=== PATIENT | female | born 1945 | race Native Hawaiian/Other Pacific Islander ===

== ENCOUNTER 2018-01-21 01:20 | Observation (INO) | payer OTHER, SELFPAY ==
[2018-01-21] VITALS (15 sets, daily range): BP systolic 106–156; BP diastolic 56–79; PULSE 54–98; RESP 14–20; TEMP 36.3–37.1; O2SAT 95–99; BMI 24.3
--- NOTE | 2018-01-21 | DI.ECHO.S_ITS ---
[facility] +---------+ : : [address] : : : : [place], [place] : : : : [id number] : : : : Phone: [phone] Echocardiogram Report + + :Name: AMADOR PANDEY Study Date: 01/21/2018 Height: 63 in : :[facility] Exam Location: IS Weight: 145 lb : : Gender: Female BSA: 1.7 m2 : :: 1945 Age: 72 yrs BP: 117/76 mmHg: :Reason For Study: CHEST PAIN : : Performed By: Bogdan Benson : :Referring: MILLICENT NAVARRO : + + Interpretation Summary 1) Normal left ventricular thickness, size, wall motion, and systolic function (EF 60-65%0. 2) Normal right ventricular size and function. 3) No significant valvular abnormalities. 4) The ascending aorta is mild-moderately enlarged at 4.3cm. 5) No prior echo available for comparison. Procedure: A two-dimensional transthoracic echocardiogram with color flow and Doppler was performed. The study quality was technically adequate. There is no prior echocardiogram noted for this patient. The patient was in normal sinus rhythm during the exam. The patient had frequent PVCs during the exam. Left Ventricle: The left ventricle is normal in size. There is normal left ventricular wall thickness. The ejection fraction is estimated to be 60-65%. There are no focal wall motion abnormalities. Right Ventricle: The right ventricle is normal in size and function. Atria: Both atria are normal in size. The interatrial septum is intact with no evidence for an atrial septal defect. The thickening of interatrial septum suggests lipomatous hypertrophy. Mitral Valve: The mitral valve is normal in structure and function. There is trace mitral regurgitation. Aortic Valve: The aortic valve is trileaflet. The aortic valve opens well. There is no aortic valve stenosis. There is trace aortic regurgitation. Tricuspid Valve: The tricuspid valve is normal in structure and function. There is a trace or physiologic amount of tricuspid regurgitation. The right ventricular systolic pressure is estimated at 17 mmHg assuming a right atrial pressure of 3 mm Hg. Pulmonic Valve: The pulmonic valve is not well visualized. There is trace pulmonic regurgitation. Great Vessels: The aortic root is normal size. The ascending aorta is mild- moderately enlarged. The pulmonary artery is normal size. The IVC is of normal diameter and collapses greater than 50% with a sniff. This suggests a low right atrial pressure of 3 mm Hg. Pericardium/ Pleura There is no pericardial effusion. There is no pleural effusion. MMode/2D Measurements & Calculations LVIDd: 4.5 cm Ao root diam: 3.1 cm LVIDs: 3.1 cm Aortic Jxn: 2.7 cm FS: 31.7 % asc Aorta Diam: 4.3 cm EPSS: 0.58 cm IVSd: 0.84 cm LVPWd: 0.88 cm LV olmedo. diameter/BSA (cm/m^2): 2.7 LV sys. diameter/BSA (cm/m^2): 1.8 LA dimension: 3.1 cm RA long axis: 4.5 cm LA A2 area: 17.1 cm2 RA area: 12.5 cm2 LA A4 area: 15.6 cm2 RA vol: 29.4 ml LA length (vol): 4.8 cm RA : 17.4 ml/m2 LA vol: 47.2 ml IVC diam: 1.2 cm LA vol index: 28.0 ml/m2 Doppler Measurements & Calculations Ao V2 max: 165.0 cm/sec MV E max henrik: 64.9 cm/sec Ao V2 mean: 97.3 cm/sec MV A max henrik: 122.1 cm/sec Ao max P.9 mmHg MV E/A: 0.53 Ao mean P.6 mmHg Med Peak E' Henrik: 4.1 cm/sec Ao V2 VTI: 31.3 cm E/E' med: 15.7 Lat Peak E' Henrik: 9.8 cm/sec E/E' lat: 6.6 E/e' average: 11.2 MV dec time: 0.13 sec TR max henrik: 184.9 cm/sec Pulm A Revs Henrik: 40.0 cm/sec TR max P.7 mmHg PA V2 max: 108.8 cm/sec PA V2 mean: 71.2 cm/sec PA mean P.4 mmHg PA pr(Accel): 51.6 mmHg PA Accel Time: 0.05 sec Reading Physician:06:04 PM
--- NOTE | 2018-01-21 01:25 | DI.RAD.S_ITS ---
PROCEDURE: XR CHEST 1V INDICATIONS: Chest Pain TECHNIQUE: One view of the chest was acquired. COMPARISON: None. FINDINGS: Surgical changes and devices: None. Lungs and pleura: No pleural effusions or pneumothorax. Lungs are clear. Mediastinum: Mediastinal contours appear normal. Heart size is normal. Bones and chest wall: No suspicious bony lesions. Overlying soft tissues appear unremarkable. Calcific tendinitis is noted at the right humeral head. Moderate acromioclavicular bilaterally degenerative narrowing is present. IMPRESSION: No acute pulmonary process. Dictated by: Alexandria Ball M.D. on 01/21/2018 at 9:18 Approved by: Alexandria Ball M.D. on 01/21/2018 at 9:19
--- NOTE | 2018-01-21 01:35 | ED_ITS ---
HPI - Chest Pain General Chief Complaint: Chest Pain Stated Complaint: Chest tightness Time Seen by Provider: 01/21/18 01:25 Source: patient and EMS Mode of arrival: EMS Limitations: no limitations History of Present Illness HPI narrative: 72-year-old female presents by EMS for evaluation of left-sided chest pain that woke her from sleep about 30 min prior to her arrival. She called EMS to bring her in. She has had chest pain requiring admission in the past and stress tests but she is unclear when that happened but states that was at [facility] in [place]. She admits to mild ongoing discomfort and was given full-dose aspirin by EMS. She denies other symptoms such as dizziness, weakness or lightheadedness. She denies nausea, vomiting or diarrhea. She denies history of blood clots or cancer. She denies provocation or palliation but states the pain is on her left side and goes up the left side of her neck. MD complaint: chest pain Onset (ago): minute(s) Duration: constant Onset: during rest Pain location: left chest Severity: mild Quality: aching and heaviness Pain radiation: neck Relieving factors: nothing Context: recent illness Associated symptoms: nausea Treatments prior to arrival chest pain: aspirin Related Data Home Medications Medication Instructions Recorded Confirmed amlodipine 10 mg PO DAILY 01/21/18 01/21/18 aspirin 81 mg PO DAILY 01/21/18 01/21/18 atorvastatin 10 mg PO DAILY 01/21/18 01/21/18 hydrochlorothiazide 25 mg PO DAILY 01/21/18 01/21/18 Allergies Allergy/AdvReac Type Severity Reaction Status Date / Time codeine Allergy Verified 01/21/18 01:36 lisinopril Allergy Verified 01/21/18 01:36 Review of Systems Review of Systems All systems reviewed & are unremarkable except as noted in HPI and below Constitutional Denies chills, Denies fever(s), Denies lethargy and Denies weakness Eyes Denies change in vision, Denies eye discharge, Denies irritation and Denies loss of vision ENT Ears, Nose, Mouth, and Throat: Denies change in voice, Denies neck pain and Denies sore throat Cardiovascular Reports chest pain, Denies irregular heart rhythm, Denies lightheadedness, Denies palpitations, Denies dyspnea, Denies dyspnea on exertion and Denies orthopnea Respiratory Denies cough, Denies dyspnea, Denies dyspnea on exertion and Denies wheezing Gastrointestinal Gastrointestinal: Denies abdominal pain, Denies change in bowel habits, Denies diarrhea, Denies nausea and Denies vomiting Genitourinary Denies hematuria, Denies flank pain, Denies urinary incontinence and Denies urinary urgency Musculoskeletal Denies neck pain Integumentary/Breasts Denies pruritus, Denies erythema, Denies rash and Denies wounds Neurologic Denies confusion, Denies loss of vision and Denies weakness Psychiatric Denies anxiety, Denies confusion, Denies depression, Denies homicidal ideation and Denies suicidal ideation Endocrine Denies palpitations Hematologic/Lymphatic Denies easy bruising Allergic/Immunologic Denies wheezing PFSH Medical History HTN (hypertension) (Acute) Social History Smoking Status: Never smoker alcohol intake: never Exam Narrative Exam Narrative: Pleasant 72-year-old female resting comfortably, still in left- sided chest pain albeit mild Initial Vital Signs Initial Vital Signs: Vital Signs Temperature 97.4 F L 01/21/18 01:24 Pulse Rate 98 H 01/21/18 01:24 Respiratory Rate 18 01/21/18 01:24 Blood Pressure 156/72 H 01/21/18 01:24 Pulse Oximetry 98 01/21/18 01:24 Const General: cooperative and well developed Nutritional Appearance: well nourished Orientation: alert, awake, oriented x3 and not confused [facility] Head: normocephalic and atraumatic Ears: external ears normal and TM's normal bilaterally Nose: external nose normal and No nasal discharge Face and sinus: sinuses nontender, face symmetric, no sinus tenderness and No dry mucous membranes Mouth: oral mucosae normal and moist mucous membranes Teeth and gingiva: dentition normal Throat: tonsils normal and uvula midline Eyes General: appearance normal, both eyes and all related structures Eyelids: eyelids normal Conjunctivae: conjunctivae normal Sclera: sclerae normal Pupils: PERRL EOM: EOM intact bilaterally Neck Neck: normal visual inspection, trachea midline, No lymphadenopathy, No midline deformity and No JVD Lymphatic: No lymphedema Chest Chest: normal inspection of the chest Resp Effort & Inspection: normal respiratory effort, able to speak in complete sentences, no respiratory distress and no use of accessory muscles Auscultation: clear to auscultation bilaterally, no rales, no rhonchi and no wheezes Cardio Rate: regular rate Rhythm: regular rhythm Heart Sounds: no click, no gallops, no murmurs and no rubs Pulses: normal peripheral pulses GI Inspection: non-distended Palpation: soft, no hepatosplenomegaly, No guarding, No pulsatile mass and No tender Auscultation: normal bowel sounds Back/Spine/Pelvis Back: No CVA tenderness Cervical Spine: cervical ROM normal and No pain with cervical ROM Thoracic/Lumbar Spine: thoracic and lumbar spine normal to inspection Skin General: no rashes or lesions noted, No jaundice and No petechiae Neuro General: alert, oriented x3, gait normal and no focal motor deficits Speech: speech normal Extrem General: full ROM, no clubbing, cyanosis or edema, no pedal edema and no calf tenderness Psych Appearance: well kempt Mental Status: mental status grossly normal Attitude: cooperative Thought Content: normal and suicidality Judgment: judgment good Course Orders Ordered: ED Orders 01/21/18 EKG-12 Lead Routine 01/21/18 01:24 Complete Blood Count AUTO DIFF Routine Comprehensive Metabolic Panel Routine Lipase Routine Troponin & CK Cardiac Panel Routine 01/21/18 01:25 XR chest 1V Stat Sodium Chloride (Normal Saline 0.9%) 1,000 mls @ 150 mls/hr IV CONT NATACHA Last Admin: 01/21/18 01:37 Dose: 150 mls/hr Discontinued Medications Aspirin (Aspirin Chew) 324 mg PO NOW ONE Stop: 01/21/18 01:26 Last Admin: 01/21/18 01:35 Dose: Not Given Reevaluation(s) Reevaluation #1: Patient chest pain-free from just after arrival to the emergency department until transported upstairs. Multiple attempts at getting records from [facility] in [place] but their die engraving supervisor states [facility] is down Consultations Consultation #1: Dr. Christianson is happy to accept this patient, recommending observation status Vital Signs - 8 hr 01/21/18 01:24 01/21/18 02:05 01/21/18 02:33 Temperature 97.4 F L Pulse Rate 98 H 66 71 Respiratory Rate 18 19 20 Blood Pressure 156/72 H Blood Pressure [Left Arm] 120/79 142/78 H Pulse Oximetry 98 98 97 01/21/18 03:10 Temperature Pulse Rate 72 Respiratory Rate 17 Blood Pressure Blood Pressure [Left Arm] 106/65 Pulse Oximetry 95 MDM - Chest Pain Medical Records Data Attestation: I reviewed the patient's medical records. Lab Data Attestation: I reviewed the patient's lab results. Result diagrams: 01/21/18 01:24 01/21/18 01:24 Lab Results 01/21/18 01/21/18 Range/Units 01:24 01:24 WBC 5.0 (4.5-11.0) X10^3/uL RBC 4.53 (4.0-5.2) X10^6/uL Hgb 14.6 (12.0-16.0) g/dL Hct 41.9 (36-46) % MCV 92.5 (80-100) fL MCH 32.3 (26-34) PG MCHC 34.9 (30-36) % RDW 13.4 (11.6-14.8) % Plt Count 196 (150-400) X10^3/uL Neut % (Auto) 41.6 L (50-75) % Lymph % (Auto) 44.8 H (25-40) % Morton % (Auto) 9.6 (3-14) % Eos % (Auto) 2.8 (2-4) % Baso % (Auto) 1.2 (0-2) % Neut # (Auto) 2100 L (4670-1232) /uL Sodium 141 (137-145) mmol/L Potassium 3.1 L (3.4-5.1) mmol/L Chloride 103 (98-107) mmol/L Carbon Dioxide 24 (22-32) mmol/L BUN 17 (7-17) mg/dL Creatinine 0.70 (0.52-1.04) mg/dL Estimated GFR > 60.0 (>60) mL/min BUN/Creatinine Ratio 24.3 H (6-22) Glucose 109 (80-110) mg/dL Calcium 9.9 (8.4-10.2) mg/dL Total Bilirubin 1.1 (0.2-1.3) mg/dL AST 58 H (14-36) IU/L ALT 46 (9-52) IU/L Alkaline Phosphatase 78 (38-126) U/L Total Creatine Kinase 536 H (30-135) U/L CK-MB (CK-2) 5.71 H (<2.37) ng/mL CK-MB (CK-2) Rel Index 1.1 L (1.5-5.0) % Troponin I < 0.012 (0.01-0.034) ng/mL Total Protein 8.8 H (6.3-8.2) g/dL Albumin 4.9 (3.5-5.0) g/dL Globulin 3.9 (1.7-4.1) g/dL Albumin/Globulin Ratio 1.3 (1.0-2.8) Lipase 115 (23-300) U/L ECG Data Attestation: I personally reviewed and interpreted this ECG as follows: Prior ECG tracings: not available for review Interpretation: NSR, nonspecific T wave abnormalities. No ST Changes. Discharge Plan Departure Patient Disposition: Admitted as Observation Clinical Impression: Chest pain, Acute hypokalemia
[2018-01-21 01:37] LABS: Add Manual Diff / Slide Review NO; Basophils Percent Auto 1.2 % (0-2); Eosinophils Percent Auto 2.8 % (2-4); Hematocrit 41.9 % (36-46); Hemoglobin 14.6 g/dL (12.0-16.0); Lymphocytes Percent Auto 44.8 % (25-40); Mean Corpuscular HGB Conc 34.9 % (30-36); Mean Corpuscular Hemoglobin 32.3 PG (26-34); Mean Corpuscular Volume 92.5 fL (80-100); Monocytes Percent Auto 9.6 % (3-14); Neutrophils Absolute Auto 2100 /uL (3000-5900); Neutrophils Percent Auto 41.6 % (50-75); Platelet Count 196 X10^3/uL (150-400); Red Blood Cell Count 4.53 X10^6/uL (4.0-5.2); Red Cell Distribution Width 13.4 % (11.6-14.8)
[2018-01-21] MEDS: SODIUM CHLORIDE 0.9% 1,000 ML 150 ML IV (01:37)
[2018-01-21 01:42] LABS: Alanine Aminotransferase 46 IU/L (9-52); Albumin 4.9 g/dL (3.5-5.0); Albumin Globulin Ratio 1.3 (1.0-2.8); Alkaline Phosphatase 78 U/L (38-126); Aspartate Aminotransferase 58 IU/L (14-36); BUN Creatinine Ratio 24.3 (6-22); Bilirubin Total 1.1 mg/dL (0.2-1.3); Blood Urea Nitrogen 17 mg/dL (7-17); Calcium 9.9 mg/dL (8.4-10.2); Carbon Dioxide 24 mmol/L (22-32); Chloride 103 mmol/L (98-107); Creatine Kinase 536 U/L (30-135); Estimated Glomerular Filt Rate > 60.0 mL/min (>60); Globulin 3.9 g/dL (1.7-4.1); Glucose 109 mg/dL (80-110); Lipase 115 U/L (23-300); Potassium 3.1 mmol/L (3.4-5.1); Sodium 141 mmol/L (137-145); Total Protein 8.8 g/dL (6.3-8.2)
[2018-01-21 01:57] LABS: CKMB % Relative Index 1.1 % (1.5-5.0); Creatine Kinase MB 5.71 ng/mL (<2.37); HEMOLYSIS 17 (0-50)
[2018-01-21 02:01] LABS: Troponin I < 0.012 ng/mL (0.01-0.034)
[2018-01-21] MEDS: POTASSIUM CHLORIDE 40 MEQ in SODIUM CHLORIDE 0.9% 500 ML 130 ML IV (05:28)
--- NOTE | 2018-01-21 08:01 | PC.NURSE ---
Addendum entered by Jailyn Rudd R.N. 01/21/18 15:23: CARDIAC - ECHO in progress. Original Note: Addendum entered by Jailyn Rudd R.N. 01/21/18 14:48: cardiac - reviewed ekg, no new orders. Original Note: Addendum entered by Jailyn Rudd R.N. 01/21/18 14:32: chest pain - the earlier nitro sl did relieve her discomfort and tightness, now rates discomfort at 2 or less. Original Note: Addendum entered by Jailyn Rudd R.N. 01/21/18 14:24: CARDIAC - RT arrived and stat ekg completed. Original Note: Addendum entered by Jailyn Rudd R.N. 01/21/18 14:19: chest pain - pt seated in chair, when rounding and asked how she felt, states she felt the chest tightness l shoulder area return, has been present on/off I forgot to say something for the past few minutes, vs taken hr 66, bp 135/77, 02 sat 98%, discussed return pain with , pt was given 0.4sl nitro and declines morphine at this time, assisted pt back to bed and contacted RT and ordered a stat ekg. 1st nitro at 1415. Pt did become tearful, also pointed to mid sternal area and that she had not had bm past 2 days, this info was provided to during discussion. Original Note: Addendum entered by Jailyn Rudd R.N. 01/21/18 13:16: ECHO - per [employer], multiple calls have been made to environmental remediation consultant echo and no response at this time, the office is trying to contact now. Original Note: Addendum entered by Jailyn Rudd R.N. 01/21/18 10:52: RT - contacted RT as to when the ekg will be done, RT checked and said no printed order was rec'd, rechecked hx and was ordered by for 01/21, RT in now and completed. Original Note: AM NOTE - alert, no sob, states has had an ongoing upper l chest discomfort, mild since adm, unlike the pain and dizziness, tremors that sent her to ER, reports moved to [place] 2 days ago and has been moving boxes around, hr reg 72, no dizziness when assisted to br to void, K+rider infusing, voiding clear yellow urine, ICU called to report what looked like vtac, pt was up to sink brushing teeth, had her sit back down in chair and her rhythm returned to SR per icu and was not actually vtac, 02 sat 99% ra, bs clear, no nausea, lab in this am and troponin and lipids drawn.
[2018-01-21 08:20] LABS: Troponin I < 0.012 ng/mL (0.01-0.034)
--- NOTE | 2018-01-21 08:34 | P.HP_ITS ---
History of Present Illness Date Patient Seen: 01/21/18 Time Patient Seen: 08:32 Chief complaint: Chest tightness Narrative: 72-year-old female who was awakened early this morning while sleeping with chest pressure and palpitations. She called 911 and paramedics brought her into the hospital for evaluation. She started feeling better shortly after arriving at the emergency department. No prior history of heart disease but does have a history of high blood pressure. Patient History Medical History HTN (hypertension) (Acute) Family & Social History Social History: household members spouse Prior Living Arrangements House Safety & Behavioral: Feels Safe in Current Yes Environment Been Physically Hurt or No Threatened By a Person Suicidal Ideation Description None Tobacco & Substance use: Smoking Status Never smoker alcohol intake never alcohol intake frequency holiday/special occasion Meds Home Medications Medication Instructions Recorded Confirmed Type amlodipine 10 mg PO DAILY 01/21/18 01/21/18 History aspirin 81 mg PO DAILY 01/21/18 01/21/18 History atorvastatin 10 mg PO DAILY 01/21/18 01/21/18 History hydrochlorothiazide 25 mg PO DAILY 01/21/18 01/21/18 History Allergies Allergy/AdvReac Type Severity Reaction Status Date / Time codeine Allergy Verified 01/21/18 01:36 lisinopril Allergy Verified 01/21/18 01:36 Review of Systems Review of Systems All systems reviewed & are unremarkable except as noted in HPI and below Exam Vital Signs (past 8 hours): - 01/21/18 01:24 01/21/18 02:05 01/21/18 02:33 Temperature 97.4 F L Pulse Rate 98 H 66 71 Respiratory Rate 18 19 20 Blood Pressure 156/72 H Blood Pressure [Left Arm] 120/79 142/78 H Pulse Oximetry 98 98 97 01/21/18 03:10 01/21/18 04:10 01/21/18 07:49 Temperature Pulse Rate 72 68 Respiratory Rate 17 16 Blood Pressure 107/59 L Blood Pressure [Left Arm] 106/65 Pulse Oximetry 95 97 99 Oxygen Delivery Method Room Air Narrative Exam Narrative: Pleasant middle-aged to elderly female no acute distress resting comfortably eating breakfast HEENT exam unremarkable Neck is supple new no bruit Heart regular rhythm Lungs Clear to auscultation Abdomen soft nontender no masses Lower extremities no edema Neuro exam unremarkable Skin warm and dry Objective Labs Result Diagrams: 01/21/18 01:24 01/21/18 01:24 Labs: Laboratory Results - last 24 hr 01/21/18 01/21/18 01/21/18 01:24 01:24 07:42 WBC 5.0 RBC 4.53 Hgb 14.6 Hct 41.9 MCV 92.5 MCH 32.3 MCHC 34.9 RDW 13.4 Plt Count 196 Neut % (Auto) 41.6 L Lymph % (Auto) 44.8 H [place] % (Auto) 9.6 Eos % (Auto) 2.8 Baso % (Auto) 1.2 Neut # (Auto) 2100 L Sodium 141 Potassium 3.1 L Chloride 103 Carbon Dioxide 24 BUN 17 Creatinine 0.70 Estimated GFR > 60.0 BUN/Creatinine Ratio 24.3 H Glucose 109 Calcium 9.9 Total Bilirubin 1.1 AST 58 H ALT 46 Alkaline Phosphatase 78 Total Creatine Kinase 536 H CK-MB (CK-2) 5.71 H CK-MB (CK-2) Rel Index 1.1 L Troponin I < 0.012 < 0.012 Total Protein 8.8 H Albumin 4.9 Globulin 3.9 Albumin/Globulin Ratio 1.3 Lipase 115 Assessment & Plan Plan: Assessment/Plan Narrative: One. Chest pain with palpitations. EKG also shows showing signs of T-wave inversion and T-wave flattening in the anterolateral leads. No prior EKG for comparison. Initial troponin negative. The patient will be placed on observation for troponin testing echocardiogram telemetry. Plan to continue her home meds for her white blood pressure and also place her on Lovenox and nitroglycerin. Consider nuclear stress test tomorrow morning.
[2018-01-21] MEDS: hydroCHLOROthiazide 25 MG TABLET PO (08:53)
[2018-01-21] MEDS: ASPIRIN EC 81 MG TABLET PO (08:54)
[2018-01-21] MEDS: ENOXAPARIN 40 MG/0.4 ML SYRINGE SUBCUT (08:54)
[2018-01-21] MEDS: ACETAMINOPHEN 325 MG TABLET 650 MG PO ×2 (08:55→23:57)
[2018-01-21] MEDS: NITROGLYCERIN TOP (08:56)
[2018-01-21 09:16] LABS: Cholesterol 143 mg/dL (140-199); HDL Cholesterol 63 mg/dL (40-60); LDL Cholesterol Calculated 70 mg/dL (<100); Triglycerides 49 mg/dL (35-150)
[2018-01-21] MEDS: SODIUM CHLORIDE 0.9% 1,000 ML 125 ML IV ×2 (10:15→18:03)
[2018-01-21] MEDS: NITROGLYCERIN 0.4 MG SL TAB SL (14:15)
[2018-01-21 16:48] LABS: Troponin I < 0.012 ng/mL (0.01-0.034)
[2018-01-21] MEDS: AMLODIPINE 5 MG TABLET 10 MG PO (20:48)
[2018-01-21] MEDS: REMOVE NITRO PATCH 0.2 EACH TOP (20:49)
[2018-01-21] MEDS: ATORVASTATIN 10 MG TABLET PO (20:49)
[2018-01-22] VITALS (9 sets, daily range): BP systolic 102–121; BP diastolic 53–85; PULSE 49–67; RESP 16–20; TEMP 36.7–37; O2SAT 96–99
[2018-01-22] MEDS: SODIUM CHLORIDE 0.9% 1,000 ML 125 ML IV (01:42)
--- NOTE | 2018-01-22 06:09 | PC.NURSE ---
[employer]-At beginning of shift, pt distressed over trying to use call light for 1 hour, trying to get help to the bathroom. Pt using nurse call light button on the bed. Call light was within her reach when bid writer entered the room. Pt stated she was about to call her to get help. Comfort offered to pt and explained that if she needed help 1 hour was too long to wait, to have tried the red help button on her call light if not getting a response or to call out loud for help. Pt settled and slept well overnight and Pt asymptomatic overnight. HR into high 40's when sleeping. On telemetry monitoring. Around 2345, stated had headache 5/10, tylenol prn given with good effect. IVF infusing well to Left AC PIV. O2 sat 98% on RA. Voiding qs. Pt aware of stress test ordered this morning. No other voiced concerns. Call light within reach. Pt OOB with SBA, denies lightheadedness or dizziness, chest pain/pressure with ambulation, steady gait.
[2018-01-22] MEDS: NITROGLYCERIN TOP (06:46)
[2018-01-22] MEDS: hydroCHLOROthiazide 25 MG TABLET PO (10:31)
[2018-01-22] MEDS: POTASSIUM CHLORIDE 20 MEQ TAB 40 MEQ PO (10:31)
[2018-01-22] MEDS: ENOXAPARIN 40 MG/0.4 ML SYRINGE SUBCUT (10:31)
[2018-01-22] MEDS: ASPIRIN EC 81 MG TABLET PO (10:31)
--- NOTE | 2018-01-22 11:23 | CM.DANOTE ---
Addendum entered by XU Heard 01/22/18 14:12: ADD: Per MD, pt is medically stable to d/c home with family today. No identified barriers to discharge. Plan: Patient d/c home today via family POV. No SW needs at this time. XU Heard Original Note: Patient is a 72 year old female who was admitted on 01/21/18 for Chest Tightness. Pt has [facility] for insurance and her PCP is not listed. EMR was reviewed. Per MD, pt had more cardiac changes last night and has scheduled stress test for this morning. Per RN, pt has been independent in her room and just back from stress test. SW met bedside with pt and explained role and pt confirmed that she lives in [place] at home with her spouse and has 2 supportive adult Dtrs who live out of town but are currently here helping with the pt's move into a smaller house with her . Pt states she is typically Independent with ADL's at baseline and drives and denies any hx of HH or SNF. Pt confirms that this move has been stressful and likely contributed to her medical concerns. Pt preference is to d/c home later today via her Dtr's POV when medically stable. Pt does not anticipate any SW needs. Plan: SW to follow for likely pt d/c home with family support when medically stable. SW to follow for any further identified discharge planning needs. XU Heard Discharge Planning/Care Management CM Discharge Assessment Start: 01/22/18 11:21 Freq: Status: Active Protocol: Document 01/22/18 11:22 BF (Rec: 01/22/18 11:23 [id number]) Discharge Planning Assessment Assigned [employer] XU History Provided By Patient Family Member Has Patient been admitted in last 30 No days? Is this patient on Medicare? Yes Is the admit diagnosis the same? Yes Prior Living Arrangements House Household Members spouse Type of transporation used prior to Drives own vehicle admit Comment I at baseline with ADL's Independent with ADL's Yes Is patient alert and oriented? Yes Referrals Initiated None needed Comment Likely home with spouse at d/c and currently 2 adult dtrs in town helping them with their move into a new house. Discharge Plan Home Transportation Arrangement Family can provide transport Review Status In Process Next Review Type Discharge Review
--- NOTE | 2018-01-22 14:07 | PM.DS.1 ---
History of Present Illness Chief complaint: Chest tightness Narrative: 72-year-old female who was awakened early this morning while sleeping with chest pressure and palpitations. She called 911 and paramedics brought her into the hospital for evaluation. She started feeling better shortly after arriving at the emergency department. No prior history of heart disease but does have a history of high blood pressure. Discharge Providers Date of admission: 01/21/18 04:30 Discharge provider: Librado Schulz MD Summary Discharge Diagnosis: 1. Noncardiac chest pain 2. Hypokalemia Hospital Course: Patient ruled out for VT with serial cardiac enzymes. Myocardial perfusion treadmill stress testing the following day did not reveal any evidence of ischemia on monitor or on myocardial perfusion imaging. This was a very low risk test. Patient will discharge home and follow up with PCP. Also she did have mild hypokalemia on admission due to having missed several days of her potassium tablet. She received oral potassium replacement in hospital. Status at Discharge Functional status at discharge: independent ambulation Exam Vital Signs (past 8 hours): - 01/22/18 06:46 01/22/18 07:44 01/22/18 08:45 Temperature 98.6 F Pulse Rate 62 63 Respiratory Rate 16 Blood Pressure 121/63 H 119/63 Pulse Oximetry 99 99 01/22/18 09:19 01/22/18 12:52 Temperature 98.5 F Pulse Rate 63 62 Respiratory Rate 16 Blood Pressure 119/63 119/69 Pulse Oximetry 98 Oxygen Delivery Method Room Air Oxygen Flow Rate 0 Objective Labs Result Diagrams: 01/21/18 01:24 01/21/18 01:24 Labs: Laboratory Results - last 24 hr 01/21/18 16:05 Troponin I < 0.012 Discharge Plan Discharge Plan Patient Disposition: Home, Self-Care Provider Discharge Instructions Diet: Diet as Tolerated Discharge Data Attending Provider: Fletcher Christianson Admit Date/Time: 01/21/18 04:30
--- NOTE | 2018-01-22 15:52 | PC.NURSE ---
Discharge pt took all belongings with her. Notified to f/u with PCP in 1-[address] Schulz verbal order. PIV removed prior to d/c. tele removed. Rx for KCl given to pt. left with PRECISION DEVICES INSPECTOR/TESTER as escort and sister.
--- NOTE | 2018-01-23 12:26 | DI.NM.S_ITS ---
DATE OF SERVICE: PROCEDURE: Exercise perfusion study. INDICATIONS: Chest pain with underlying hypertension, hyperlipidemia, and family history of myocardial infarction. RADIOPHARMACEUTICAL: 24.5 mCi of technetium-99m Myoview IV was injected at stress. Please note this is an exercise perfusion study only. CARDIAC STRESS: The patient underwent exercise perfusion study under the supervision of an attending staff. She walked on Josse protocol for 6 minutes 46 seconds and achieved 7 METs of workload and about 100% of target heart rate with a normal blood pressure response. Baseline EKG revealed sinus rhythm with low-voltage complexes in limb leads. There were some nonspecific ST-T changes. During peak exercise, there were baseline artifacts; however, in immediate recovery, there were no significant ischemic changes seen. Occasional PACs and PVCs. No significant sustained arrhythmias. The patient felt fatigued. RAW DATA: There was breast shadow seen. GATED STUDY: Stress LV ejection fraction 88%. No obvious wall motion abnormalities. Lung/heart ratio 0.32, which is within normal limits. Stress LV end-diastolic volume 78 mL. MYOCARDIAL PERFUSION SCAN: Stress supine and stress prone images were compared to each other. Stress supine images revealed minimally decreased perfusion of anteroapex which completely resolved during prone images. Prone images revealed normal myocardial perfusion. CONCLUSION: I would call this study a normal myocardial perfusion study with evidence of minimal breast tissue attenuation artifact which resolved during prone images. Overall LV function is preserved. As far as perfusion scan is concerned, this is a low risk myocardial perfusion scan. Addie Stafford - IRINA/odilia/ephraim doc#: [id number]/job#: [id number] dd: 01/22/2018 12:44:00 dt: 01/22/2018 14:22:00 DICTATING MD/COPIES TO: Fouzia Forbes MD COPIES MNE: DAVID
== END 2018-01-22 15:15 | disposition home or self-care (01) ==
LOC: ED 03:15 → AC 04:31
PROVIDERS: Admitting Provider Internal Medicine; Emergency Provider Emergency Medicine; Visit Provider Internal Medicine
DX: R07.9 Chest pain, unspecified (principal); I10 Essential (primary) hypertension; E87.6 Hypokalemia
CPT/HCPCS: 36415; 71045; 78451; 80053; 80061; 81003; 82550; 82553; 83690; 84484; 85025; 93005; 93016; 93017; 93018; 93306; 96360; 96361; 99283; 99285; G0378; A9502; J1650; J3480

== ENCOUNTER 2020-01-23 12:37 | Observation (INO) | payer OTHER, SELFPAY ==
[2018-01-21 04:33] VITALS: BMI 24.3
[2020-01-23] VITALS (15 sets, daily range): BP systolic 115–194; BP diastolic 59–94; PULSE 58–78; RESP 10–23; TEMP 36.7–36.9; O2SAT 94–100; BMI 25.0
--- NOTE | 2020-01-23 12:45 | DI.RAD.S_ITS ---
PROCEDURE: XR CHEST 1V INDICATIONS: weakness TECHNIQUE: One view of the chest was acquired. COMPARISON: [facility], CR, XR CHEST 1V, 01/21/2018, 1:36. FINDINGS: Surgical changes and devices: None. Lungs and pleura: Lungs are clear. No pleural effusions or pneumothorax. Mediastinum: Mediastinal contours appear normal. Heart size is enlarged. Bones and chest wall: No suspicious bony lesions. Overlying soft tissues appear unremarkable. IMPRESSION: Cardiomegaly without overt heart failure. No pneumonia. Dictated by: Philippe Cortez M.D. on 01/23/2020 at 12:09 Approved by: Philippe Cortez M.D. on 01/23/2020 at 12:09
--- NOTE | 2020-01-23 12:48 | DI.CT.S_ITS ---
PROCEDURE: CT HEAD/BRAIN WO CON INDICATIONS: change in mental status TECHNIQUE: Noncontrast 4.5 mm thick angled axial sections acquired from the foramen magnum to the vertex, with coronal and sagittal reformats. For radiation dose reduction, the following was used: automated exposure control, adjustment of mA and/or kV according to patient size. COMPARISON: None. FINDINGS: Image quality: Excellent. CSF spaces: Basal cisterns are patent. No extra-axial fluid collections. The ventricles are symmetric in size and shape. Brain: No intracranial bleeds or masses. There is cerebral volume loss for age, with resultant ventricular and sulcal prominence. There are periventricular and deep white matter chronic small vessel ischemic changes. There is intracranial internal carotid artery atherosclerosis. Skull and face: Calvarium and visualized facial bones appear intact, without suspicious lesions. Sinuses: Visualized sinuses and mastoids are clear. IMPRESSION: No acute intracranial process. Dictated by: Moe Hernandez M.D. on 01/23/2020 at 13:08 Approved by: Moe Hernandez M.D. on 01/23/2020 at 13:10
[2020-01-23 13:01] LABS: Add Manual Diff / Slide Review NO; Basophils Absolute Auto 0 /uL (0-100); Basophils Percent Auto 0.3 % (0-2); Eosinophils Absolute Auto 200 /uL (0-450); Hematocrit 43.1 % (36-46); Hemoglobin 14.6 g/dL (12.0-16.0); Lymphocytes Absolute Auto 1200 /uL (1100-4500); Lymphocytes Percent Auto 29.7 % (25-40); Mean Corpuscular HGB Conc 33.9 % (30-36); Mean Corpuscular Hemoglobin 32.6 PG (26-34); Mean Corpuscular Volume 96.3 fL (80-100); Monocytes Absolute Auto 400 /uL (0-900); Monocytes Percent Auto 9.9 % (3-14); Neutrophils Absolute Auto 2300 /uL (1500-7000); Neutrophils Percent Auto 56.1 % (50-75); Platelet Count 148 X10^3/uL (150-400); Red Blood Cell Count 4.47 X10^6/uL (4.0-5.2); Red Cell Distribution Width 12.9 % (11.6-14.8); White Blood Cell Count 4.1 X10^3/uL (4.5-11.0)
[2020-01-23 13:09] LABS: INR 0.9 (0.9-1.3); Prothrombin Time 10.6 SECONDS (10.1-12.7)
[2020-01-23 13:12] LABS: PTT Partial Thromboplastin Tim 31 SECONDS (26.4-36.2)
[2020-01-23 13:17] LABS: Creatine Kinase 137 U/L (30-135)
[2020-01-23 13:18] LABS: Lactate (Lactic Acid) 3.9 mmol/L (0.7-2.1)
[2020-01-23] MEDS: SODIUM CHLORIDE 0.9% 1,000 ML 1000 ML IV ×2 (13:21→14:50)
--- NOTE | 2020-01-23 13:24 | PC.NURSE ---
Pt arrived with EMS. Per pt woke up around 0600 and ate breakfast. LKW around 10am. Pt did crow workout at home and started to feel shakey had to sit down. called EMS. upon arrival pt confused. unable to answer simple questions like month or year. Repetitive questioning. Consistently asking if she passed out, and what happened. +help desk specialist/pushes equal and strong. PERRL, HR 60's BP elevated 194/sys. BP meds are taken at night consistently. 97% RA. Lungs clear. h/o HTN but denies further cardiac history. Glucose 126. IV in place and labs drawn. attached to cardiac monitoring. taken for STAT Head CT. [facility] 1 and completed alongside Crystal Padron DNP. Per , pt has h/o [employer] once 2 years ago while living in [place] and was seen at [facility]. Records requested. IVF infusing. awaiting further orders.
[2020-01-23 13:30] LABS: NT-proBNP (BNP-Adult 18+) 128 pg/mL (<125); Troponin I < 0.012 ng/mL (0.01-0.034)
[2020-01-23 13:32] LABS: CKMB % Relative Index 1.2 % (1.5-5.0); Creatine Kinase MB 1.64 ng/mL (<2.37)
[2020-01-23 13:36] LABS: Procalcitonin < 0.05 ng/mL (<0.5)
[2020-01-23 13:39] LABS: Acetaminophen < 10 ug/mL (10-30); Alanine Aminotransferase 40 IU/L (<35); Albumin 4.9 g/dL (3.5-5.0); Albumin Globulin Ratio 1.4 (1.0-2.8); Alkaline Phosphatase 72 U/L (38-126); Aspartate Aminotransferase 99 IU/L (14-36); BUN Creatinine Ratio 27.9 (6-22); Bilirubin Total 0.9 mg/dL (0.2-1.3); Blood Urea Nitrogen 19 mg/dL (7-17); Calcium 10.2 mg/dL (8.4-10.2); Carbon Dioxide 24 mmol/L (22-32); Chloride 98 mmol/L (98-107); Estimated Glomerular Filt Rate > 60.0 mL/min (>60); Ethanol (ETOH) < 10 mg/dL; Globulin 3.6 g/dL (1.7-4.1); Glucose 130 mg/dL (80-110); HEMOLYSIS 33 (0-50); Potassium 3.1 mmol/L (3.4-5.1); Salicylate 1.1 mg/dL (<20); Sodium 133 mmol/L (137-145); Total Protein 8.5 g/dL (6.3-8.2)
[2020-01-23 13:49] LABS: Thyroid Stimulating Hormone 2.79 uIU/mL (0.47-4.68)
[2020-01-23 13:55] LABS: Prolactin 41.2 ng/mL (3.0-18.6)
[2020-01-23 14:29] LABS: UR Morphine/Opiate cutoff 300 Negative (Negative); Ur Creatinine Normal (Normal); Ur Specific Gravity Normal (Normal); Urine Amphetamines Negative (Negative); Urine Barbiturates Negative (Negative); Urine Benzodiazepines Negative (Negative); Urine Cocaine Negative (Negative); Urine MDMA Negative (Negative); Urine Methadone Negative (Negative); Urine Methamphetamines Negative (Negative); Urine Oxycodone Negative (Negative); Urine Phencyclidine Negative (Negative); Urine Tetrahydrocannabinol Negative (Negative); Urine Tricyclic Antidepressant Negative (Negative); Urine pH Normal (Normal)
[2020-01-23 14:54] LABS: Reflexed Lactate in 2 Hours Y
[2020-01-23 15:19] LABS: Creatine Kinase 128 U/L (30-135)
[2020-01-23 15:20] LABS: Lactate 2HR (Lactic Acid Rflx) 1.4 mmol/L (0.7-2.1)
[2020-01-23 15:32] LABS: Troponin I 0.056 ng/mL (0.01-0.034)
[2020-01-23 15:34] LABS: CKMB % Relative Index 1.4 % (1.5-5.0); Creatine Kinase MB 1.75 ng/mL (<2.37)
[2020-01-23] MEDS: POTASSIUM CHLORIDE 20 MEQ TAB 40 MEQ PO ×2 (16:08→22:13)
[2020-01-23 16:30] LABS: Magnesium 1.9 mg/dL (1.6-2.3)
[2020-01-23 18:02] LABS: COVID19 -Nasal RAPID Negative (Negative)
--- NOTE | 2020-01-23 20:00 | ED.NEUROSD ---
HPI - Neuro Symptoms/Deficit <CHERELLE Yusuf-BC - Last Filed: 01/23/20 20:34> General Chief Complaint: Neuro Symptoms/Deficit Stated Complaint: Pam Felipe Time Seen by Provider: 01/23/20 12:43 Source: patient and family Mode of arrival: EMS Limitations: altered mental status History of Present Illness HPI Narrative: The patient is a 74-year-old female nonsmoker with history of hypertension, high cholesterol transient global amnesia who presents with a chief complaint of shakiness and confusion. This morning she woke up around 6:00 a.m., ate yogurt for breakfast. Between 930 and 10:00 a.m., she was doing Andi but in her house to exercise. Then she felt very ?shaky and weak and had to sit down. Thus her called EMS, who found her slightly confused and unable to answer simple questions. She was unable to specify the year, [facility] She repeatedly asked if she had passed out. She denies any chest pain, shortness of breath falls or trauma. She denies any abdominal pain nausea vomiting or urinary symptoms. She does have a history of hypertension. Her blood sugar was 120s. The patient was admitted approximately 2 years ago this month for chest pressure and hypokalemia with a potassium of 3.1. arrives, states that she has a history of transient global amnesia. He says the patient did not pass out or have any falls or trauma. He states that several years ago she was admitted at [facility] for similar issues, when she became shaky and confused while exercising. This is well [place]. Records were requested. On Anticoagulants: No Related Data Home Medications Medication Instructions Recorded Confirmed aspirin 81 mg PO DAILY 01/21/18 01/23/20 atorvastatin 20 mg PO DAILY 01/21/18 01/23/20 hydrochlorothiazide 50 mg PO DAILY 01/21/18 01/23/20 metoprolol succinate 25 mg PO DAILY 01/23/20 01/23/20 Previous Rx's Medication Instructions Recorded potassium chloride 20 meq PO DAILY #30 tab 01/22/18 Allergies Allergy/AdvReac Type Severity Reaction Status Date / Time codeine Allergy Verified 01/21/18 01:36 lisinopril Allergy Verified 01/21/18 01:36 Review of Systems <QUINCY Yusuf - Last Filed: 01/23/20 20:34> Review of Systems Narrative: GENERAL: Denies chills, fatigue, malaise, fever, sweats. HEENT: Denies sinus pain, ear pain, sore throat, difficulty swallowing, dizziness. RESPIRATORY: Denies dyspnea, cough, wheezing, hemoptysis, sputum. CARDIOVASCULAR: Denies chest pain, palpitations, orthopnea, edema, GASTROINTESTINAL: Denies nausea, vomiting, abdominal pain, diarrhea, constipation, melena. : Denies dysuria, frequency, incontinence, hematuria, urinary retention. MUSCULOSKELETAL: denies weakness, joint pain, or bony pain SKIN: Denies rash, skin lesions, or other NEUROLOGIC: See HPI PSYCHIATRIC: No concerning psychosocial issues. 12 point review of systems is negative except for those stated above Patient History <Crystal Spencer, [facility] - Last Filed: 01/23/20 20:34> Medical History (Updated 01/23/20 @ 21:32 by Leyla Harris MD) Chest pain (Inactive) HTN (hypertension) (Acute) Hyperlipidemia (Acute) Hypokalemia (Inactive) Family History (Updated 01/23/20 @ 21:33 by Leyla Harris MD) Brother Cardiac disease Social History (Updated 01/21/18 @ 01:34 by Tristan Bull DO) household members: spouse Smoking Status: Never smoker alcohol intake: never Smoking Status: Never smoker alcohol intake frequency: holidays/special occasions only Exam <Crystal Padron [facility] - Last Filed: 01/23/20 20:34> Narrative Exam Narrative: GENERAL: This is a well-nourished, well-developed patient, no acute distress HEAD: Atraumatic. Normocephalic. No temporal or scalp tenderness. EYES: Pupils equal round and reactive. Extraocular motions intact. No scleral icterus. No injection or drainage. ENT: Nose without bleeding, purulent drainage or septal hematoma. Throat without erythema, tonsillar hypertrophy or exudate. Uvula midline. Airway patent. NECK: Trachea midline. No JVD or lymphadenopathy. Supple, nontender, no meningeal signs. CARDIOVASCULAR: Regular rate and rhythm RESPIRATORY: Clear to auscultation. Breath sounds equal bilaterally. No wheezes, rales, or rhonchi. No cough. No increased respiratory effort. No accessory muscle use. GASTROINTESTINAL: Abdomen soft, non-tender, nondistended. No hepato-splenomegaly, or palpable masses. No guarding. EXTREMITIES: No clubbing, cyanosis, or edema. No joint tenderness, effusion, or edema noted. BACK: Nontender without deformity or crepitance. No flank tenderness. NEURO: Alert, oriented to place, name, birthday, not location. Heel-wiggins test intact. Stable gait. No gross cranial nerve deficits. SKIN: No rash or erythema on visible skin Initial Vital Signs Initial Vital Signs: Vital Signs Temperature 98.1 F 01/23/20 12:52 Pulse Rate 68 01/23/20 12:52 Respiratory Rate 16 01/23/20 12:52 Blood Pressure 194/93 H 01/23/20 12:52 Pulse Oximetry 97 01/23/20 12:52 <Kris Hudson MD - Last Filed: 01/24/20 08:03> Initial Vital Signs Initial Vital Signs: Vital Signs Temperature 98.1 F 01/23/20 12:52 Pulse Rate 68 01/23/20 12:52 Respiratory Rate 16 01/23/20 12:52 Blood Pressure 194/93 H 01/23/20 12:52 Pulse Oximetry 97 01/23/20 12:52 Scores <CORRINA Yusuf - Last Filed: 01/23/20 20:34> GCS Tomas coma scale eye opening: Spontaneous Tomas coma scale verbal response: Orientated [place] coma scale motor response: Obey commands Tomas coma scale total score: 15 NIH Stroke Scale Level of Conciousness: Alert, keenly responsive Ask month/age: Answers one question correctly, intubated follow commands Open/close eyes, close hand: Performs both tasks correctly Best gaze horizontal: Normal Visual anton: No visual loss Facial palsy: Normal symetrical movement Left arm drift: No drift for full 10 sec Right arm drift: No drift for full 10 sec Left leg drift: No drift for full 10 sec Right leg drift: No drift for full 10 sec Limb ataxia: Absent Sensory on face/arms/legs: Normal, no sensory loss Best language: No aphasia, normal Dysarthria: Normal Extinction or inattention: No abnormality Total NIH Stroke scale score: 1 Course <CORRINA Yusuf - Last Filed: 01/23/20 20:34> Orders Ordered: Acetaminophen (Tylenol) 650 mg PO Q6HR PRN PRN Reason: Fever/Mild Pain (1-3) Aspirin (Aspirin Ec) 81 mg PO DAILY NATACHA Atorvastatin Calcium (Lipitor) 20 mg PO BEDTIME NATACHA Last Admin: 01/23/20 22:09 Dose: 20 mg Documented by: Admin: 01/23/20 21:51 Dose: 20 mg Documented by: EMILIO Enoxaparin Sodium (Lovenox) 40 mg SUBCUT DAILY [facility] Metoprolol Succinate (Toprol Xl) 25 mg PO DAILY [facility] Naloxone HCl (Narcan) 0.2 mg IV Q2MIN PRN PRN Reason: Opiate Reversal Ondansetron HCl (Zofran) 4 mg IV Q8HR PRN PRN Reason: Nausea And Vomiting Potassium Chloride (Klor-Con M20) 20 meq PO DAILYCC [facility] Discontinued Medications Hydrochlorothiazide (Hydrochlorothiazide) 50 mg PO DAILY NATACHA Sodium Chloride (Normal Saline 0.9%) 1,000 mls @ 1,000 mls/hr IV BOLUS ONE Stop: 01/23/20 13:42 Last Infusion: 01/23/20 14:30 Dose: 0 mls/hr Documented by: Admin: 01/23/20 13:21 Dose: 1,000 mls/hr Documented by: BRITTON Sodium Chloride (Normal Saline 0.9%) 1,000 mls @ 1,000 mls/hr IV BOLUS ONE Stop: 01/23/20 14:34 Last Infusion: 01/23/20 15:51 Dose: 0 mls/hr Documented by: Admin: 01/23/20 14:50 Dose: 1,000 mls/hr Documented by: BRITTON Dextrose/Sodium Chloride (Dextrose 5%-0.45% Ns) 1,000 mls @ 100 mls/hr IV CONT NATACHA Last Admin: 01/23/20 22:09 Dose: 100 mls/hr Documented by: Admin: 01/23/20 21:51 Dose: 100 mls/hr Documented by: EMILIO Potassium Chloride (Klor-Con M20) 40 meq PO NOW ONE Stop: 01/23/20 14:56 Last Admin: 01/23/20 16:08 Dose: 40 meq Documented by: BRITTON Potassium Chloride (Klor-Con M20) 40 meq PO NOW ONE Stop: 01/23/20 21:45 Last Admin: 01/23/20 22:13 Dose: 40 meq Documented by: EMILIO Reevaluation(s) Reevaluation #1: Patient has an improving mental status, GCS 15, NIH of 0 at this point time. Time: 13:40 Vital Signs Vital signs: Vital Signs - 8 hr 01/23/20 12:52 01/23/20 12:57 01/23/20 13:00 Temperature 98.1 F Pulse Rate 68 65 65 Respiratory Rate 16 16 18 Blood Pressure 194/93 H Pulse Oximetry 97 94 100 01/23/20 13:30 01/23/20 13:58 01/23/20 14:00 Temperature Pulse Rate 60 60 58 L Respiratory Rate 16 16 12 Blood Pressure 175/78 H 170/77 H Pulse Oximetry 100 100 100 01/23/20 14:30 01/23/20 15:00 01/23/20 15:01 Temperature Pulse Rate 59 L 62 Respiratory Rate 14 10 L Blood Pressure 181/81 H 171/71 H Pulse Oximetry 100 100 01/23/20 15:34 01/23/20 16:00 Temperature Pulse Rate 78 75 Respiratory Rate 16 20 Blood Pressure Pulse Oximetry 97 100 <Kris Hudson MD - Last Filed: 01/24/20 08:03> Orders Ordered: Acetaminophen (Tylenol) 650 mg PO Q6HR PRN PRN Reason: Fever/Mild Pain (1-3) Aspirin (Aspirin Ec) 81 mg PO DAILY [facility] Atorvastatin Calcium (Lipitor) 20 mg PO BEDTIME [facility] Last Admin: 01/23/20 22:09 Dose: 20 mg Documented by: Admin: 01/23/20 21:51 Dose: 20 mg Documented by: EMILIO Enoxaparin Sodium (Lovenox) 40 mg SUBCUT DAILY [facility] Metoprolol Succinate (Toprol Xl) 25 mg PO DAILY [facility] Naloxone HCl (Narcan) 0.2 mg IV Q2MIN PRN PRN Reason: Opiate Reversal Ondansetron HCl (Zofran) 4 mg IV Q8HR PRN PRN Reason: Nausea And Vomiting Potassium Chloride (Klor-Con M20) 20 meq PO DAILYCC NATACHA Discontinued Medications Hydrochlorothiazide (Hydrochlorothiazide) 50 mg PO DAILY [facility] Sodium Chloride (Normal Saline 0.9%) 1,000 mls @ 1,000 mls/hr IV BOLUS ONE Stop: 01/23/20 13:42 Last Infusion: 01/23/20 14:30 Dose: 0 mls/hr Documented by: Admin: 01/23/20 13:21 Dose: 1,000 mls/hr Documented by: BRITTON Sodium Chloride (Normal Saline 0.9%) 1,000 mls @ 1,000 mls/hr IV BOLUS ONE Stop: 01/23/20 14:34 Last Infusion: 01/23/20 15:51 Dose: 0 mls/hr Documented by: Admin: 01/23/20 14:50 Dose: 1,000 mls/hr Documented by: BRITTON Dextrose/Sodium Chloride (Dextrose 5%-0.45% Ns) 1,000 mls @ 100 mls/hr IV CONT NATACHA Last Admin: 01/23/20 22:09 Dose: 100 mls/hr Documented by: Admin: 01/23/20 21:51 Dose: 100 mls/hr Documented by: EMILIO Potassium Chloride (Klor-Con M20) 40 meq PO NOW ONE Stop: 01/23/20 14:56 Last Admin: 01/23/20 16:08 Dose: 40 meq Documented by: BRITTON Potassium Chloride (Klor-Con M20) 40 meq PO NOW ONE Stop: 01/23/20 21:45 Last Admin: 01/23/20 22:13 Dose: 40 meq Documented by: EMILIO Vital Signs Vital signs: Vital Signs - 8 hr 01/23/20 12:52 01/23/20 12:57 01/23/20 13:00 Temperature 98.1 F Pulse Rate 68 65 65 Respiratory Rate 16 16 18 Blood Pressure 194/93 H Pulse Oximetry 97 94 100 01/23/20 13:30 01/23/20 13:58 01/23/20 14:00 Temperature Pulse Rate 60 60 58 L Respiratory Rate 16 16 12 Blood Pressure 175/78 H 170/77 H Pulse Oximetry 100 100 100 01/23/20 14:30 01/23/20 15:00 01/23/20 15:01 Temperature Pulse Rate 59 L 62 Respiratory Rate 14 10 L Blood Pressure 181/81 H 171/71 H Pulse Oximetry 100 100 01/23/20 15:34 01/23/20 16:00 Temperature Pulse Rate 78 75 Respiratory Rate 16 20 Blood Pressure Pulse Oximetry 97 100 MDM - Neuro Symptoms/Deficit <Crystaljuliano AnnaMINOO eagleP- - Last Filed: 01/23/20 20:34> Lab Data Result diagrams: 01/23/20 12:49 01/24/20 05:30 Labs: Lab Results 01/23/20 01/23/20 01/23/20 Range/Units 12:49 12:49 12:49 WBC 4.1 L (4.5-11.0) X10^3/uL RBC 4.47 (4.0-5.2) X10^6/uL Hgb 14.6 (12.0-16.0) g/dL Hct 43.1 (36-46) % MCV 96.3 (80-100) fL MCH 32.6 (26-34) PG MCHC 33.9 (30-36) % RDW 12.9 (11.6-14.8) % Plt Count 148 L (150-400) X10^3/uL Neut % (Auto) 56.1 (50-75) % Lymph % (Auto) 29.7 (25-40) % [place] % (Auto) 9.9 (3-14) % Eos % (Auto) 4.0 (2-4) % Baso % (Auto) 0.3 (0-2) % Neut # (Auto) 2300 (6705-3995) /uL Lymph # (Auto) 1200 (9373-8106) /uL [place] # (Auto) 400 (0-900) /uL Eos # (Auto) 200 (0-450) /uL Baso # (Auto) 0 (0-100) /uL PT (10.1-12.7) SECONDS INR (0.9-1.3) APTT (26.4-36.2) SECONDS Sodium (137-145) mmol/L Potassium (3.4-5.1) mmol/L Chloride (98-107) mmol/L Carbon Dioxide (22-32) mmol/L BUN (7-17) mg/dL Creatinine (0.52-1.04) mg/dL Estimated GFR (>60) mL/min BUN/Creatinine Ratio (6-22) Glucose (80-110) mg/dL Lactate (0.7-2.1) mmol/L Calcium (8.4-10.2) mg/dL Magnesium (1.6-2.3) mg/dL Total Bilirubin (0.2-1.3) mg/dL AST (14-36) IU/L ALT (<35) IU/L Alkaline Phosphatase (38-126) U/L Total Creatine Kinase 137 H (30-135) U/L CK-MB (CK-2) 1.64 (<2.37) ng/mL CK-MB (CK-2) Rel Index 1.2 L (1.5-5.0) % Troponin I < 0.012 (0.01-0.034) ng/mL NT-Pro-B Natriuret Pep 128 H (<125) pg/mL Total Protein (6.3-8.2) g/dL Albumin (3.5-5.0) g/dL Globulin (1.7-4.1) g/dL Albumin/Globulin Ratio (1.0-2.8) Procalcitonin < 0.05 (<0.5) ng/mL TSH (0.47-4.68) uIU/mL Prolactin (3.0-18.6) ng/mL Salicylates (<20) mg/dL U Opiates 300ng/mL cut (Negative) Ur Oxycodone Screen (Negative) Urine Methadone Screen (Negative) Acetaminophen (10-30) ug/mL Ur Barbiturates Screen (Negative) U Tricyclic Antidepress (Negative) Ur Phencyclidine Scrn (Negative) Ur Amphetamines Screen (Negative) U Methamphetamines Scrn (Negative) Ur MDMA Scrn (Ecstasy) (Negative) U Benzodiazepines Scrn (Negative) Urine Cocaine Screen (Negative) U Marijuana (THC) Screen (Negative) Ethyl Alcohol ( - 10) mg/dL 01/23/20 01/23/20 01/23/20 Range/Units 12:49 12:49 12:49 WBC (4.5-11.0) X10^3/uL RBC (4.0-5.2) X10^6/uL Hgb (12.0-16.0) g/dL Hct (36-46) % MCV (80-100) fL MCH (26-34) PG MCHC (30-36) % RDW (11.6-14.8) % Plt Count (150-400) X10^3/uL Neut % (Auto) (50-75) % Lymph % (Auto) (25-40) % [place] % (Auto) (3-14) % Eos % (Auto) (2-4) % Baso % (Auto) (0-2) % Neut # (Auto) (6213-1527) /uL Lymph # (Auto) (8682-7352) /uL [place] # (Auto) (0-900) /uL Eos # (Auto) (0-450) /uL Baso # (Auto) (0-100) /uL PT 10.6 (10.1-12.7) SECONDS INR 0.9 (0.9-1.3) APTT 31 (26.4-36.2) SECONDS Sodium 133 L (137-145) mmol/L Potassium 3.1 L (3.4-5.1) mmol/L Chloride 98 (98-107) mmol/L Carbon Dioxide 24 (22-32) mmol/L BUN 19 H (7-17) mg/dL Creatinine 0.68 (0.52-1.04) mg/dL Estimated GFR > 60.0 (>60) mL/min BUN/Creatinine Ratio 27.9 H (6-22) Glucose 130 H (80-110) mg/dL Lactate 3.9 H (0.7-2.1) mmol/L Calcium 10.2 (8.4-10.2) mg/dL Magnesium (1.6-2.3) mg/dL Total Bilirubin 0.9 (0.2-1.3) mg/dL AST 99 H (14-36) IU/L ALT 40 H (<35) IU/L Alkaline Phosphatase 72 (38-126) U/L Total Creatine Kinase (30-135) U/L CK-MB (CK-2) (<2.37) ng/mL CK-MB (CK-2) Rel Index (1.5-5.0) % Troponin I (0.01-0.034) ng/mL NT-Pro-B Natriuret Pep (<125) pg/mL Total Protein 8.5 H (6.3-8.2) g/dL Albumin 4.9 (3.5-5.0) g/dL Globulin 3.6 (1.7-4.1) g/dL Albumin/Globulin Ratio 1.4 (1.0-2.8) Procalcitonin (<0.5) ng/mL TSH (0.47-4.68) uIU/mL Prolactin 41.2 H (3.0-18.6) ng/mL Salicylates 1.1 (<20) mg/dL U Opiates 300ng/mL cut (Negative) Ur Oxycodone Screen (Negative) Urine Methadone Screen (Negative) Acetaminophen < 10 L (10-30) ug/mL Ur Barbiturates Screen (Negative) U Tricyclic Antidepress (Negative) Ur Phencyclidine Scrn (Negative) Ur Amphetamines Screen (Negative) U Methamphetamines Scrn (Negative) Ur MDMA Scrn (Ecstasy) (Negative) U Benzodiazepines Scrn (Negative) Urine Cocaine Screen (Negative) U Marijuana (THC) Screen (Negative) Ethyl Alcohol < 10 ( - 10) mg/dL 01/23/20 01/23/20 01/23/20 Range/Units 12:49 14:22 14:55 WBC (4.5-11.0) X10^3/uL RBC (4.0-5.2) X10^6/uL Hgb (12.0-16.0) g/dL Hct (36-46) % MCV (80-100) fL MCH (26-34) PG MCHC (30-36) % RDW (11.6-14.8) % Plt Count (150-400) X10^3/uL Neut % (Auto) (50-75) % Lymph % (Auto) (25-40) % [place] % (Auto) (3-14) % Eos % (Auto) (2-4) % Baso % (Auto) (0-2) % Neut # (Auto) (8271-6210) /uL Lymph # (Auto) (8157-0626) /uL [place] # (Auto) (0-900) /uL Eos # (Auto) (0-450) /uL Baso # (Auto) (0-100) /uL PT (10.1-12.7) SECONDS INR (0.9-1.3) APTT (26.4-36.2) SECONDS Sodium (137-145) mmol/L Potassium (3.4-5.1) mmol/L Chloride (98-107) mmol/L Carbon Dioxide (22-32) mmol/L BUN (7-17) mg/dL Creatinine (0.52-1.04) mg/dL Estimated GFR (>60) mL/min BUN/Creatinine Ratio (6-22) Glucose (80-110) mg/dL Lactate (0.7-2.1) mmol/L Calcium (8.4-10.2) mg/dL Magnesium (1.6-2.3) mg/dL Total Bilirubin (0.2-1.3) mg/dL AST (14-36) IU/L ALT (<35) IU/L Alkaline Phosphatase (38-126) U/L Total Creatine Kinase 128 (30-135) U/L CK-MB (CK-2) 1.75 (<2.37) ng/mL CK-MB (CK-2) Rel Index 1.4 L (1.5-5.0) % Troponin I 0.056 H (0.01-0.034) ng/mL NT-Pro-B Natriuret Pep (<125) pg/mL Total Protein (6.3-8.2) g/dL Albumin (3.5-5.0) g/dL Globulin (1.7-4.1) g/dL Albumin/Globulin Ratio (1.0-2.8) Procalcitonin (<0.5) ng/mL TSH 2.79 (0.47-4.68) uIU/mL Prolactin (3.0-18.6) ng/mL Salicylates (<20) mg/dL U Opiates 300ng/mL cut Negative (Negative) Ur Oxycodone Screen Negative (Negative) Urine Methadone Screen Negative (Negative) Acetaminophen (10-30) ug/mL Ur Barbiturates Screen Negative (Negative) U Tricyclic Antidepress Negative (Negative) Ur Phencyclidine Scrn Negative (Negative) Ur Amphetamines Screen Negative (Negative) U Methamphetamines Scrn Negative (Negative) Ur MDMA Scrn (Ecstasy) Negative (Negative) U Benzodiazepines Scrn Negative (Negative) Urine Cocaine Screen Negative (Negative) U Marijuana (THC) Screen Negative (Negative) Ethyl Alcohol ( - 10) mg/dL 01/23/20 01/23/20 Range/Units 14:55 14:55 WBC (4.5-11.0) X10^3/uL RBC (4.0-5.2) X10^6/uL Hgb (12.0-16.0) g/dL Hct (36-46) % MCV (80-100) fL MCH (26-34) PG MCHC (30-36) % RDW (11.6-14.8) % Plt Count (150-400) X10^3/uL Neut % (Auto) (50-75) % Lymph % (Auto) (25-40) % [place] % (Auto) (3-14) % Eos % (Auto) (2-4) % Baso % (Auto) (0-2) % Neut # (Auto) (0840-8670) /uL Lymph # (Auto) (8290-9026) /uL [place] # (Auto) (0-900) /uL Eos # (Auto) (0-450) /uL Baso # (Auto) (0-100) /uL PT (10.1-12.7) SECONDS INR (0.9-1.3) APTT (26.4-36.2) SECONDS Sodium (137-145) mmol/L Potassium (3.4-5.1) mmol/L Chloride (98-107) mmol/L Carbon Dioxide (22-32) mmol/L BUN (7-17) mg/dL Creatinine (0.52-1.04) mg/dL Estimated GFR (>60) mL/min BUN/Creatinine Ratio (6-22) Glucose (80-110) mg/dL Lactate 1.4 (0.7-2.1) mmol/L Calcium (8.4-10.2) mg/dL Magnesium 1.9 (1.6-2.3) mg/dL Total Bilirubin (0.2-1.3) mg/dL AST (14-36) IU/L ALT (<35) IU/L Alkaline Phosphatase (38-126) U/L Total Creatine Kinase (30-135) U/L CK-MB (CK-2) (<2.37) ng/mL CK-MB (CK-2) Rel Index (1.5-5.0) % Troponin I (0.01-0.034) ng/mL NT-Pro-B Natriuret Pep (<125) pg/mL Total Protein (6.3-8.2) g/dL Albumin (3.5-5.0) g/dL Globulin (1.7-4.1) g/dL Albumin/Globulin Ratio (1.0-2.8) Procalcitonin (<0.5) ng/mL TSH (0.47-4.68) uIU/mL Prolactin (3.0-18.6) ng/mL Salicylates (<20) mg/dL U Opiates 300ng/mL cut (Negative) Ur Oxycodone Screen (Negative) Urine Methadone Screen (Negative) Acetaminophen (10-30) ug/mL Ur Barbiturates Screen (Negative) U Tricyclic Antidepress (Negative) Ur Phencyclidine Scrn (Negative) Ur Amphetamines Screen (Negative) U Methamphetamines Scrn (Negative) Ur MDMA Scrn (Ecstasy) (Negative) U Benzodiazepines Scrn (Negative) Urine Cocaine Screen (Negative) U Marijuana (THC) Screen (Negative) Ethyl Alcohol ( - 10) mg/dL Point of Care Testing Glucose POC [address] scan - head: Radiologist's Impression: [address] [place] [place] [address] CT Scan Report Signed Patient: Addie Stafford QMR#: [id number] : [id number]:[id number] Age/Sex: 74 / FDate of Service: 01/23/20 Loc: ED Accession Number: [id number] Procedure: CT head/brain wo con Ordering Provider: Crystal Padron [facility] PROCEDURE: CT HEAD/BRAIN WO CON INDICATIONS: change in mental status TECHNIQUE: Noncontrast 4.5 mm thick angled axial sections acquired from the foramen magnum to the vertex, with coronal and sagittal reformats. For radiation dose reduction, the following was used: automated exposure control, adjustment of mA and/or kV according to patient size. COMPARISON: None. FINDINGS: Image quality: Excellent. CSF spaces: Basal cisterns are patent. No extra-axial fluid collections. The ventricles are symmetric in size and shape. Brain: No intracranial bleeds or masses. There is cerebral volume loss for age, with resultant ventricular and sulcal prominence. There are periventricular and deep white matter chronic small vessel ischemic changes. There is intracranial internal carotid artery atherosclerosis. Skull and face: Calvarium and visualized facial bones appear intact, without suspicious lesions. Sinuses: Visualized sinuses and mastoids are clear. IMPRESSION: No acute intracranial process. Dictated by: Moe Hernandez M.D. on 01/23/2020 at 13:08 Approved by: Moe Hernandez M.D. on 01/23/2020 at 13:10 Chest x-ray: Radiologist's Impression: [facility] [address] [place] [id number] XRay Report Signed Patient: Addie Stafford QMR#: [id number] : [id number]:[id number] Age/Sex: 74 / FDate of Service: 01/23/20 Loc: ED Accession Number: [id number] Procedure: XR chest 1V Ordering Provider: Crystal Padron PROCEDURE: XR CHEST 1V INDICATIONS: weakness TECHNIQUE: One view of the chest was acquired. COMPARISON: [facility], , XR CHEST 1V, 01/21/2018, 1:36. FINDINGS: Surgical changes and devices: None. Lungs and pleura: Lungs are clear. No pleural effusions or pneumothorax. Mediastinum: Mediastinal contours appear normal. Heart size is enlarged. Bones and chest wall: No suspicious bony lesions. Overlying soft tissues appear unremarkable. IMPRESSION: Cardiomegaly without overt heart failure. No pneumonia. Dictated by: Philippe Cortez M.D. on 01/23/2020 at 12:09 Approved by: Philippe Cortez M.D. on 01/23/2020 at 12:09 ECG Data Attestation: I personally reviewed and interpreted this ECG as follows: Interpretation: Sinus rhythm. Ventricular rate 68. P.r. interval 172. QRS 82. Flipped T-waves noted as per patient's previous EKGs and notes from [facility] viewed by Dr. 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 called EMS and patient arrived to the emergency department confused, unable to answer simple questions with repetitive questioning. Head CT shows no acute findings. Her initial NIH was 1, but that improved to an NIH of 0. The patient was later found to have history of transient global amnesia, and then afterwards discussed her transient global amnesia. However the patient could have had a TIA at that point in time, it is also noted that her initial troponin is negative and her repeat troponin is indeterminate. She also has a slightly elevated prolactin, which does not always is gait seizure activity, but this could be a possibility at this point. Discussed case with Dr Hudson. Given the patient's presentation of confusion, NIH of 1, I spoke with Dr. carney regarding the patient who kindly admitted the patient for observation. The patient was noted to be slightly hypokalemic at 3.1, she was given 40 mEq p.o. which she tolerated well. Urinalysis shows no indications of infection, negative tox screen. Coronavirus test ordered for admission. <Kris Hudson MD - Last Filed: 01/24/20 08:03> Lab Data Labs: Lab Results 01/23/20 01/23/20 01/23/20 Range/Units 12:49 12:49 12:49 WBC 4.1 L (4.5-11.0) X10^3/uL RBC 4.47 (4.0-5.2) X10^6/uL Hgb 14.6 (12.0-16.0) g/dL Hct 43.1 (36-46) % MCV 96.3 (80-100) fL MCH 32.6 (26-34) PG MCHC 33.9 (30-36) % RDW 12.9 (11.6-14.8) % Plt Count 148 L (150-400) X10^3/uL Neut % (Auto) 56.1 (50-75) % Lymph % (Auto) 29.7 (25-40) % [place] % (Auto) 9.9 (3-14) % Eos % (Auto) 4.0 (2-4) % Baso % (Auto) 0.3 (0-2) % Neut # (Auto) 2300 (2640-6399) /uL Lymph # (Auto) 1200 (7357-3022) /uL [place] # (Auto) 400 (0-900) /uL Eos # (Auto) 200 (0-450) /uL Baso # (Auto) 0 (0-100) /uL PT (10.1-12.7) SECONDS INR (0.9-1.3) APTT (26.4-36.2) SECONDS Sodium (137-145) mmol/L Potassium (3.4-5.1) mmol/L Chloride (98-107) mmol/L Carbon Dioxide (22-32) mmol/L BUN (7-17) mg/dL Creatinine (0.52-1.04) mg/dL Estimated GFR (>60) mL/min BUN/Creatinine Ratio (6-22) Glucose (80-110) mg/dL Lactate (0.7-2.1) mmol/L Calcium (8.4-10.2) mg/dL Magnesium (1.6-2.3) mg/dL Total Bilirubin (0.2-1.3) mg/dL AST (14-36) IU/L ALT (<35) IU/L Alkaline Phosphatase (38-126) U/L Total Creatine Kinase 137 H (30-135) U/L CK-MB (CK-2) 1.64 (<2.37) ng/mL CK-MB (CK-2) Rel Index 1.2 L (1.5-5.0) % Troponin I < 0.012 (0.01-0.034) ng/mL NT-Pro-B Natriuret Pep 128 H (<125) pg/mL Total Protein (6.3-8.2) g/dL Albumin (3.5-5.0) g/dL Globulin (1.7-4.1) g/dL Albumin/Globulin Ratio (1.0-2.8) Procalcitonin < 0.05 (<0.5) ng/mL TSH (0.47-4.68) uIU/mL Prolactin (3.0-18.6) ng/mL Salicylates (<20) mg/dL U Opiates 300ng/mL cut (Negative) Ur Oxycodone Screen (Negative) Urine Methadone Screen (Negative) Acetaminophen (10-30) ug/mL Ur Barbiturates Screen (Negative) U Tricyclic Antidepress (Negative) Ur Phencyclidine Scrn (Negative) Ur Amphetamines Screen (Negative) U Methamphetamines Scrn (Negative) Ur MDMA Scrn (Ecstasy) (Negative) U Benzodiazepines Scrn (Negative) Urine Cocaine Screen (Negative) U Marijuana (THC) Screen (Negative) Ethyl Alcohol ( - 10) mg/dL 0701/23/20 01/23/20 Range/Units 12:49 12:49 12:49 WBC (4.5-11.0) X10^3/uL RBC (4.0-5.2) X10^6/uL Hgb (12.0-16.0) g/dL Hct (36-46) % MCV (80-100) fL MCH (26-34) PG MCHC (30-36) % RDW (11.6-14.8) % Plt Count (150-400) X10^3/uL Neut % (Auto) (50-75) % Lymph % (Auto) (25-40) % [place] % (Auto) (3-14) % Eos % (Auto) (2-4) % Baso % (Auto) (0-2) % Neut # (Auto) (6466-8016) /uL Lymph # (Auto) (1226-6452) /uL [place] # (Auto) (0-900) /uL Eos # (Auto) (0-450) /uL Baso # (Auto) (0-100) /uL PT 10.6 (10.1-12.7) SECONDS INR 0.9 (0.9-1.3) APTT 31 (26.4-36.2) SECONDS Sodium 133 L (137-145) mmol/L Potassium 3.1 L (3.4-5.1) mmol/L Chloride 98 (98-107) mmol/L Carbon Dioxide 24 (22-32) mmol/L BUN 19 H (7-17) mg/dL Creatinine 0.68 (0.52-1.04) mg/dL Estimated GFR > 60.0 (>60) mL/min BUN/Creatinine Ratio 27.9 H (6-22) Glucose 130 H (80-110) mg/dL Lactate 3.9 H (0.7-2.1) mmol/L Calcium 10.2 (8.4-10.2) mg/dL Magnesium (1.6-2.3) mg/dL Total Bilirubin 0.9 (0.2-1.3) mg/dL AST 99 H (14-36) IU/L ALT 40 H (<35) IU/L Alkaline Phosphatase 72 (38-126) U/L Total Creatine Kinase (30-135) U/L CK-MB (CK-2) (<2.37) ng/mL CK-MB (CK-2) Rel Index (1.5-5.0) % Troponin I (0.01-0.034) ng/mL NT-Pro-B Natriuret Pep (<125) pg/mL Total Protein 8.5 H (6.3-8.2) g/dL Albumin 4.9 (3.5-5.0) g/dL Globulin 3.6 (1.7-4.1) g/dL Albumin/Globulin Ratio 1.4 (1.0-2.8) Procalcitonin (<0.5) ng/mL TSH (0.47-4.68) uIU/mL Prolactin 41.2 H (3.0-18.6) ng/mL Salicylates 1.1 (<20) mg/dL U Opiates 300ng/mL cut (Negative) Ur Oxycodone Screen (Negative) Urine Methadone Screen (Negative) Acetaminophen < 10 L (10-30) ug/mL Ur Barbiturates Screen (Negative) U Tricyclic Antidepress (Negative) Ur Phencyclidine Scrn (Negative) Ur Amphetamines Screen (Negative) U Methamphetamines Scrn (Negative) Ur MDMA Scrn (Ecstasy) (Negative) U Benzodiazepines Scrn (Negative) Urine Cocaine Screen (Negative) U Marijuana (THC) Screen (Negative) Ethyl Alcohol < 10 ( - 10) mg/dL 01/23/20 01/23/20 01/23/20 Range/Units 12:49 14:22 14:55 WBC (4.5-11.0) X10^3/uL RBC (4.0-5.2) X10^6/uL Hgb (12.0-16.0) g/dL Hct (36-46) % MCV (80-100) fL MCH (26-34) PG MCHC (30-36) % RDW (11.6-14.8) % Plt Count (150-400) X10^3/uL Neut % (Auto) (50-75) % Lymph % (Auto) (25-40) % [place] % (Auto) (3-14) % Eos % (Auto) (2-4) % Baso % (Auto) (0-2) % Neut # (Auto) (2547-3509) /uL Lymph # (Auto) (9457-0525) /uL [place] # (Auto) (0-900) /uL Eos # (Auto) (0-450) /uL Baso # (Auto) (0-100) /uL PT (10.1-12.7) SECONDS INR (0.9-1.3) APTT (26.4-36.2) SECONDS Sodium (137-145) mmol/L Potassium (3.4-5.1) mmol/L Chloride (98-107) mmol/L Carbon Dioxide (22-32) mmol/L BUN (7-17) mg/dL Creatinine (0.52-1.04) mg/dL Estimated GFR (>60) mL/min BUN/Creatinine Ratio (6-22) Glucose (80-110) mg/dL Lactate (0.7-2.1) mmol/L Calcium (8.4-10.2) mg/dL Magnesium (1.6-2.3) mg/dL Total Bilirubin (0.2-1.3) mg/dL AST (14-36) IU/L ALT (<35) IU/L Alkaline Phosphatase (38-126) U/L Total Creatine Kinase 128 (30-135) U/L CK-MB (CK-2) 1.75 (<2.37) ng/mL CK-MB (CK-2) Rel Index 1.4 L (1.5-5.0) % Troponin I 0.056 H (0.01-0.034) ng/mL NT-Pro-B Natriuret Pep (<125) pg/mL Total Protein (6.3-8.2) g/dL Albumin (3.5-5.0) g/dL Globulin (1.7-4.1) g/dL Albumin/Globulin Ratio (1.0-2.8) Procalcitonin (<0.5) ng/mL TSH 2.79 (0.47-4.68) uIU/mL Prolactin (3.0-18.6) ng/mL Salicylates (<20) mg/dL U Opiates 300ng/mL cut Negative (Negative) Ur Oxycodone Screen Negative (Negative) Urine Methadone Screen Negative (Negative) Acetaminophen (10-30) ug/mL Ur Barbiturates Screen Negative (Negative) U Tricyclic Antidepress Negative (Negative) Ur Phencyclidine Scrn Negative (Negative) Ur Amphetamines Screen Negative (Negative) U Methamphetamines Scrn Negative (Negative) Ur MDMA Scrn (Ecstasy) Negative (Negative) U Benzodiazepines Scrn Negative (Negative) Urine Cocaine Screen Negative (Negative) U Marijuana (THC) Screen Negative (Negative) Ethyl Alcohol ( - 10) mg/dL 01/23/20 01/23/20 Range/Units 14:55 14:55 WBC (4.5-11.0) X10^3/uL RBC (4.0-5.2) X10^6/uL Hgb (12.0-16.0) g/dL Hct (36-46) % MCV (80-100) fL MCH (26-34) PG MCHC (30-36) % RDW (11.6-14.8) % Plt Count (150-400) X10^3/uL Neut % (Auto) (50-75) % Lymph % (Auto) (25-40) % [place] % (Auto) (3-14) % Eos % (Auto) (2-4) % Baso % (Auto) (0-2) % Neut # (Auto) (0834-7624) /uL Lymph # (Auto) (8025-4026) /uL [place] # (Auto) (0-900) /uL Eos # (Auto) (0-450) /uL Baso # (Auto) (0-100) /uL PT (10.1-12.7) SECONDS INR (0.9-1.3) APTT (26.4-36.2) SECONDS Sodium (137-145) mmol/L Potassium (3.4-5.1) mmol/L Chloride (98-107) mmol/L Carbon Dioxide (22-32) mmol/L BUN (7-17) mg/dL Creatinine (0.52-1.04) mg/dL Estimated GFR (>60) mL/min BUN/Creatinine Ratio (6-22) Glucose (80-110) mg/dL Lactate 1.4 (0.7-2.1) mmol/L Calcium (8.4-10.2) mg/dL Magnesium 1.9 (1.6-2.3) mg/dL Total Bilirubin (0.2-1.3) mg/dL AST (14-36) IU/L ALT (<35) IU/L Alkaline Phosphatase (38-126) U/L Total Creatine Kinase (30-135) U/L CK-MB (CK-2) (<2.37) ng/mL CK-MB (CK-2) Rel Index (1.5-5.0) % Troponin I (0.01-0.034) ng/mL NT-Pro-B Natriuret Pep (<125) pg/mL Total Protein (6.3-8.2) g/dL Albumin (3.5-5.0) g/dL Globulin (1.7-4.1) g/dL Albumin/Globulin Ratio (1.0-2.8) Procalcitonin (<0.5) ng/mL TSH (0.47-4.68) uIU/mL Prolactin (3.0-18.6) ng/mL Salicylates (<20) mg/dL U Opiates 300ng/mL cut (Negative) Ur Oxycodone Screen (Negative) Urine Methadone Screen (Negative) Acetaminophen (10-30) ug/mL Ur Barbiturates Screen (Negative) U Tricyclic Antidepress (Negative) Ur Phencyclidine Scrn (Negative) Ur Amphetamines Screen (Negative) U Methamphetamines Scrn (Negative) Ur MDMA Scrn (Ecstasy) (Negative) U Benzodiazepines Scrn (Negative) Urine Cocaine Screen (Negative) U Marijuana (THC) Screen (Negative) Ethyl Alcohol ( - 10) mg/dL Point of Care Testing Glucose POC 126 Discharge Plan Departure Patient Disposition: Admitted as Observation Clinical Impression: Hypokalemia Altered mental status Qualifiers: Altered mental status type: transient alteration of awareness Qualified Code(s): R40.4 - Transient alteration of awareness Discharge Date/Time: 01/23/20 17:01 Admit Date/Time: 01/23/20 16:16 Admit Provider: Shana Carney
--- NOTE | 2020-01-23 21:25 | DI.ECHO.S_ITS ---
[facility]---------+ [facility] +---------+ : : [address] [place] : : : : [id number] : : : : Phone: [phone]+ Echocardiogram Report + + :Name: AMADOR PANDEY Study Date: 01/24/2020 Height: 64 in : :[facility] Weight: 146 lb : : Gender: Female BSA: 1.7 m2 : :: 1945 Age: 74 yrs BP: 155/94 mmHg: :Reason For Study: EVALUATE HEART VALVES : : Performed By: Bogdan Benson : :Referring: LIUDMILA HEAD : + + Interpretation Summary 1) Normal left ventricular thickness, size, wall motion, and systolic function (EF 60-65%). 2) Normal right ventricular size and function. 3) No significant valvular abnormalities. 4) The ascending aorta is moderately enlarged at 4.5cm. 5) Hypertension present during the study (BP 155/94mmHg). 6) No prior Echo available for comparison. Procedure: A two-dimensional transthoracic echocardiogram with color flow and Doppler was performed. The study quality was technically adequate. Comparison is made with the echocardiogram of 01/21/18. The patient was in normal sinus rhythm during the exam. Left Ventricle: The left ventricle is normal in size. There is normal left ventricular wall thickness. The ejection fraction is estimated to be 60-65%. There are no focal wall motion abnormalities. Right Ventricle: The right ventricle is normal in size and function. Atria: Both atria are normal in size. The interatrial septum is intact with no evidence for an atrial septal defect. Mitral Valve: The mitral valve is normal in structure and function. There is mild mitral regurgitation. Aortic Valve: The aortic valve is trileaflet. The aortic valve opens well. There is no aortic valve stenosis. No aortic regurgitation is present. Tricuspid Valve: The tricuspid valve is normal in structure and function. No tricuspid regurgitation. Pulmonary artery pressures cannot be estimated because of the lack of a measurable TR jet velocity. Pulmonic Valve: The pulmonic valve is not well seen, but is grossly normal. There is mild pulmonic regurgitation. Great Vessels: The aortic root is normal size. The ascending aorta is moderately enlarged. The pulmonary artery is normal size. The IVC is of normal diameter and collapses greater than 50% with a sniff. This suggests a low right atrial pressure of 3 mm Hg. Pericardium/ Pleura There is no pericardial effusion. There is no pleural effusion. MMode/2D Measurements & Calculations LVIDd: 4.1 cm LVOT diam: 1.9 cm LVIDs: 2.5 cm Ao root diam: 3.1 cm FS: 39.5 % asc Aorta Diam: 4.5 cm EPSS: 0.77 cm Ao Arch Diam (Prox Trans): 2.9 cm IVSd: 0.84 cm LVPWd: 1.0 cm LV olmedo. diameter/BSA (cm/m^2): 2.4 LV sys. diameter/BSA (cm/m^2): 1.4 LA dimension: 3.1 cm RA long axis: 5.0 cm LA A2 area: 12.7 cm2 RA area: 14.1 cm2 LA A4 area: 15.4 cm2 RA vol: 33.6 ml LA length (vol): 5.2 cm RA : 19.6 ml/m2 LA vol: 32.3 ml IVC diam: 1.4 cm LA vol index: 18.9 ml/m2 TAPSE: 1.8 cm Doppler Measurements & Calculations Ao V2 max: 150.4 cm/sec LVOT Max Henrik: 132.2 cm/sec Ao V2 mean: 106.1 cm/sec LV V1 max P.0 mmHg Ao max P.0 mmHg LV V1 VTI: 30.1 cm Ao mean P.0 mmHg AYANA(I,D): 2.8 cm2 Ao V2 VTI: 29.5 cm AYANA(V,D): 2.4 cm2 sev ratio: 1.0 AYANA indexed to BSA (cm^2/m^2): 1.6 MV E max henrik: 56.3 cm/sec PA V2 max: 100.1 cm/sec MV A max henrik: 104.2 cm/sec PA V2 mean: 76.2 cm/sec MV E/A: 0.54 PA mean P.5 mmHg Med Peak E' Henrik: 4.0 cm/sec PA pr(Accel): 39.6 mmHg E/E' med: 14.1 Lat Peak E' Henrik: 7.2 cm/sec E/E' lat: 7.9 E/e' average: 11.0 MV dec time: 0.11 sec SV(LVOT): 82.8 ml Reading Physician:12:50 PM
--- NOTE | 2020-01-23 21:28 | PM.HP.1 ---
History of Present Illness History of Present Illness Date Patient Seen: 01/23/20 Chief complaint: Shakey, Anxiety Narrative: The patient is a 74-year-old female with a history of hypertension, hyperlipidemia, who was in her usual state of health until earlier this evening. The patient was doing Andi felt a little ?funny afterwards had a glass of milk when up stairs and took her medications. Following taking her hydrochlorothiazide and potassium she felt ?shaky ?. She told her she does not feel right. Her called 911 and they evaluate her and brought her to the hospital for further evaluation. The patient states she does not recall speaking to her and does not recall the financial sales assistant arriving. She has had 2 other episodes where this is happen. Two years ago she had an episode where she was lightheaded and shaky brought into the hospital to be evaluated for chest pain ruled out and discharged home. She was also seen at [facility] about 4 years ago for another episode of shakiness dizziness and associated lack of memory and was told she had transient global amnesia. She describes that in 2/3 of the events each time she had exercised following exercise felt somewhat ?shaky? and then did not recall what happened subsequently. The patient uses weights when she is doing Andi. She reports some left-sided chest pain that lasted about 5 minutes. This did not radiate. There was no associated shortness of breath. There was no nausea. She was diaphoretic after working out but not associated with the event. In addition the patient denies any blurred vision, double vision, facial droop, slurred speech, weakness of her upper or lower extremities. The patient was evaluated in the emergency room. She had a head CT which was negative. Her EKG was unremarkable. A repeat troponin was mildly elevated at 0.056. The patient is event admitted to the hospital for further evaluation. Patient History Medical History (Updated 01/23/20 @ 21:32 by Leyla Harris MD) Chest pain (Inactive) HTN (hypertension) (Acute) Hyperlipidemia (Acute) Hypokalemia (Inactive) Family & Social History Family History (Updated 01/23/20 @ 21:33 by Leyla Harris MD) Brother Cardiac disease Social History: household members spouse Safety & Behavioral: Feels Safe in Current Yes Environment Been Physically Hurt or No Threatened By a Person Suicidal Ideation Description None Suicide Plan Description No Plan Tobacco & Substance use: Smoking Status Never smoker alcohol intake never alcohol intake frequency holiday/special occasion Meds Home Medications and Allergies Home Medications Medication Instructions Recorded Confirmed Type aspirin 81 mg PO DAILY 01/21/18 01/23/20 History atorvastatin 20 mg PO DAILY 01/21/18 01/23/20 History hydrochlorothiazide 50 mg PO DAILY 01/21/18 01/23/20 History potassium chloride 20 meq PO DAILY #30 tab 01/22/18 Rx metoprolol succinate 25 mg PO DAILY 01/23/20 01/23/20 History Allergies Allergy/AdvReac Type Severity Reaction Status Date / Time codeine Allergy Verified 01/21/18 01:36 lisinopril Allergy Verified 01/21/18 01:36 Review of Systems Review of Systems ROS: Yes All systems reviewed with the patient and are negative except as otherwise documented Exam Vital Signs (past 8 hours): - 01/23/20 13:30 01/23/20 13:58 01/23/20 14:00 Temperature Pulse Rate 60 60 58 L Respiratory Rate 16 16 12 Blood Pressure 175/78 H 170/77 H Pulse Oximetry 100 100 100 01/23/20 14:30 01/23/20 15:00 01/23/20 15:01 Temperature Pulse Rate 59 L 62 Respiratory Rate 14 10 L Blood Pressure 181/81 H 171/71 H Pulse Oximetry 100 100 01/23/20 15:34 01/23/20 16:00 01/23/20 16:30 Temperature Pulse Rate 78 75 66 Respiratory Rate 16 20 23 Blood Pressure Pulse Oximetry 97 100 100 01/23/20 17:05 Temperature 98.4 F Pulse Rate 61 Respiratory Rate 17 Blood Pressure 155/94 H Pulse Oximetry 100 Oxygen Delivery Method Room Air Narrative Exam Narrative: Pleasant female resting comfortably in no acute distress HEENT: Normocephalic atraumatic sclerae anicteric extraocular muscles are intact oropharynx is clear neck is supple Lungs: Clear to auscultation Cardiac exam: Regular rate rhythm normal S1-S2 with a 2/6 systolic ejection murmur Abdomen: Soft nontender nondistended without hepatosplenomegaly Extremities: No edema Neuro exam: Nonfocal, cranial nerves 2-12 are intact, strength is symmetric and equal, sensation is grossly intact attack, reflexes are brisk and equal, gait is not assessed GCS 15 Skin exam no lesion Objective Labs Result Diagrams: 01/23/20 12:49 01/23/20 12:49 Labs: Laboratory Results - last 24 hr 01/23/20 01/23/20 01/23/20 12:49 12:49 12:49 WBC 4.1 L RBC 4.47 Hgb 14.6 Hct 43.1 MCV 96.3 MCH 32.6 MCHC 33.9 RDW 12.9 Plt Count 148 L Neut % (Auto) 56.1 Lymph % (Auto) 29.7 [place] % (Auto) 9.9 Eos % (Auto) 4.0 Baso % (Auto) 0.3 Neut # (Auto) 2300 Lymph # (Auto) 1200 [place] # (Auto) 400 Eos # (Auto) 200 Baso # (Auto) 0 PT INR APTT Sodium Potassium Chloride Carbon Dioxide BUN Creatinine Estimated GFR BUN/Creatinine Ratio Glucose Lactate Calcium Magnesium Total Bilirubin AST ALT Alkaline Phosphatase Total Creatine Kinase 137 H CK-MB (CK-2) 1.64 CK-MB (CK-2) Rel Index 1.2 L Troponin I < 0.012 NT-Pro-B Natriuret Pep 128 H Total Protein Albumin Globulin Albumin/Globulin Ratio Procalcitonin < 0.05 TSH Prolactin Salicylates U Opiates 300ng/mL cut Ur Oxycodone Screen Urine Methadone Screen Acetaminophen Ur Barbiturates Screen U Tricyclic Antidepress Ur Phencyclidine Scrn Ur Amphetamines Screen U Methamphetamines Scrn Ur MDMA Scrn (Ecstasy) U Benzodiazepines Scrn Urine Cocaine Screen U Marijuana (THC) Screen Ethyl Alcohol COVID-19 PCR 01/23/20 01/23/20 01/23/20 12:49 12:49 12:49 WBC RBC Hgb Hct MCV MCH MCHC RDW Plt Count Neut % (Auto) Lymph % (Auto) [place] % (Auto) Eos % (Auto) Baso % (Auto) Neut # (Auto) Lymph # (Auto) [place] # (Auto) Eos # (Auto) Baso # (Auto) PT 10.6 INR 0.9 APTT 31 Sodium 133 L Potassium 3.1 L Chloride 98 Carbon Dioxide 24 BUN 19 H Creatinine 0.68 Estimated GFR > 60.0 BUN/Creatinine Ratio 27.9 H Glucose 130 H Lactate 3.9 H Calcium 10.2 Magnesium Total Bilirubin 0.9 AST 99 H ALT 40 H Alkaline Phosphatase 72 Total Creatine Kinase CK-MB (CK-2) CK-MB (CK-2) Rel Index Troponin I NT-Pro-B Natriuret Pep Total Protein 8.5 H Albumin 4.9 Globulin 3.6 Albumin/Globulin Ratio 1.4 Procalcitonin TSH Prolactin 41.2 H Salicylates 1.1 U Opiates 300ng/mL cut Ur Oxycodone Screen Urine Methadone Screen Acetaminophen < 10 L Ur Barbiturates Screen U Tricyclic Antidepress Ur Phencyclidine Scrn Ur Amphetamines Screen U Methamphetamines Scrn Ur MDMA Scrn (Ecstasy) U Benzodiazepines Scrn Urine Cocaine Screen U Marijuana (THC) Screen Ethyl Alcohol < 10 COVID-19 PCR 01/23/20 01/23/20 01/23/20 12:49 14:22 14:55 WBC RBC Hgb Hct MCV MCH MCHC RDW Plt Count Neut % (Auto) Lymph % (Auto) [place] % (Auto) Eos % (Auto) Baso % (Auto) Neut # (Auto) Lymph # (Auto) [place] # (Auto) Eos # (Auto) Baso # (Auto) PT INR APTT Sodium Potassium Chloride Carbon Dioxide BUN Creatinine Estimated GFR BUN/Creatinine Ratio Glucose Lactate Calcium Magnesium Total Bilirubin AST ALT Alkaline Phosphatase Total Creatine Kinase 128 CK-MB (CK-2) 1.75 CK-MB (CK-2) Rel Index 1.4 L Troponin I 0.056 H NT-Pro-B Natriuret Pep Total Protein Albumin Globulin Albumin/Globulin Ratio Procalcitonin TSH 2.79 Prolactin Salicylates U Opiates 300ng/mL cut Negative Ur Oxycodone Screen Negative Urine Methadone Screen Negative Acetaminophen Ur Barbiturates Screen Negative U Tricyclic Antidepress Negative Ur Phencyclidine Scrn Negative Ur Amphetamines Screen Negative U Methamphetamines Scrn Negative Ur MDMA Scrn (Ecstasy) Negative U Benzodiazepines Scrn Negative Urine Cocaine Screen Negative U Marijuana (THC) Screen Negative Ethyl Alcohol COVID- PCR 01/23/20 01/23/20 01/23/20 14:55 14:55 16:56 WBC RBC Hgb Hct MCV MCH MCHC RDW Plt Count Neut % (Auto) Lymph % (Auto) [place] % (Auto) Eos % (Auto) Baso % (Auto) Neut # (Auto) Lymph # (Auto) [place] # (Auto) Eos # (Auto) Baso # (Auto) PT INR APTT Sodium Potassium Chloride Carbon Dioxide BUN Creatinine Estimated GFR BUN/Creatinine Ratio Glucose Lactate 1.4 Calcium Magnesium 1.9 Total Bilirubin AST ALT Alkaline Phosphatase Total Creatine Kinase CK-MB (CK-2) CK-MB (CK-2) Rel Index Troponin I NT-Pro-B Natriuret Pep Total Protein Albumin Globulin Albumin/Globulin Ratio Procalcitonin TSH Prolactin Salicylates U Opiates 300ng/mL cut Ur Oxycodone Screen Urine Methadone Screen Acetaminophen Ur Barbiturates Screen U Tricyclic Antidepress Ur Phencyclidine Scrn Ur Amphetamines Screen U Methamphetamines Scrn Ur MDMA Scrn (Ecstasy) U Benzodiazepines Scrn Urine Cocaine Screen U Marijuana (THC) Screen Ethyl Alcohol COVID-19 PCR Negative Assessment & Plan Assessment & Plan narrative: Impression 1. 74-year-old female admitted to the hospital with an episode of shakiness and confusion -head CT in the emergency department is negative -patient had an NIH score of 1 upon arrival, currently she is neurologically intact -other than streakiness and confusion she had no focal neurological abnormalities including no slurring of her speech or weakness -patient has had prior episodes following exercise -she was also found to be hypokalemic, and is on a higher dose of hydrochlorothiazide, raising the possibility of possible orthostatic hypotension following exercise as a possible etiology -doubt TIA, doubt transient global amnesia -patient does have a heart murmur, she may have tachy or Matthew arrhythmias as well. -will obtain a 2D echo to evaluate valvular function -will replace potassium -will obtain orthostatic vital signs -consider outpatient Zio patch monitor to rule out tachy or bradyarrhythmia -will defer MRI at this time as it appears to be low yield 2. Chest pain -patient does report an episode of chest pain earlier today which lasted 5 minutes and resolved -EKG shows T-wave inversions anterior laterally which were present 2 years ago and are unchanged -initial cardiac enzyme 0.012, repeat 0.056, will obtain serial enzymes -will obtain 2D echo to rule out wall motion abnormality 3. Hypertension -continue metoprolol -would consider discontinuation of hydrochlorothiazide given hypokalemia and possible orthostasis but will defer to her primary care provider regarding the 4. Hyperlipidemia -continue statin 5. Hypokalemia -will report 6. Hyponatremia -likely related to thiazide diuretic -will continue to monitor Patient indicates she is a full code will note that her record accordingly her is at her bedside who is her surgery Patient is brought in under observation and anticipate that she will be able to be discharged tomorrow. Patient is placed on Lovenox for DVT prophylaxis and will continue her daily aspirin
[2020-01-23] MEDS: DEXTROSE 5%-0.45% NS 1,000 ML 100 ML IV ×2 (21:51→22:09)
[2020-01-23] MEDS: ATORVASTATIN 20 MG TABLET PO ×2 (21:51→22:09)
[2020-01-23 21:58] LABS: Creatine Kinase 122 U/L (30-135)
[2020-01-23 22:13] LABS: CKMB % Relative Index 1.6 % (1.5-5.0)
[2020-01-23 22:23] LABS: Troponin I 0.184 ng/mL (0.01-0.034)
[2020-01-24] VITALS: O2SAT 97
--- NOTE | 2020-01-24 00:56 | PC.NURSE ---
Addendum entered by Charlene Rangel R.N. 01/24/20 04:18: pt in bed and sleeping. ICU notified me that patient's heart rate was christine-low 40's but quickly went back to 50's. current heart rate is 52. Original Note: A&OX4. no chest pain, no dizziness, no sob. no weakness. no vision changes. IVF infusing. call light at bedside. troponin elevated and the hospitalist is aware. bed alarm active.
[2020-01-24 05:45] VITALS: O2SAT 97
[2020-01-24 05:48] LABS: Creatine Kinase 104 U/L (30-135)
[2020-01-24 05:49] LABS: BUN Creatinine Ratio 20.6 (6-22); Blood Urea Nitrogen 14 mg/dL (7-17); Calcium 9.2 mg/dL (8.4-10.2); Carbon Dioxide 27 mmol/L (22-32); Chloride 110 mmol/L (98-107); Estimated Glomerular Filt Rate > 60.0 mL/min (>60); Glucose 118 mg/dL (80-110); HEMOLYSIS < 15 (0-50); Potassium 4.7 mmol/L (3.4-5.1); Sodium 140 mmol/L (137-145)
[2020-01-24 05:59] LABS: Troponin I 0.112 ng/mL (0.01-0.034)
[2020-01-24 06:00] VITALS: BP 152/79; PULSE 60; RESP 16; TEMP 36.7; O2SAT 97
[2020-01-24 06:04] LABS: CKMB % Relative Index 1.6 % (1.5-5.0); Creatine Kinase MB 1.66 ng/mL (<2.37)
--- NOTE | 2020-01-24 07:34 | DI.MRI.S_ITS ---
PROCEDURE: MR STROKE Pre- and post-contrast brain MRI, non-contrast brain MR angiogram, pre- and postcontrast neck MR angiogram INDICATIONS: Poss CVA, abrupt amnesia and confusion TECHNIQUE: Brain: Noncontrast axial T1 spin echo, axial T2 fast spin echo, sagittal and axial FLAIR, coronal T2 fast spin echo, axial gradient echo, axial diffusion and ADC through the brain. After the administration of contrast, axial 3D VIBE of the cranial vasculature and brain. Brain MRA: Non-contrast 3-D time of flight MR angiogram, with multiple hbwcmix-dxrbbxzqn-yaafmzkfjl (MIP) reformats performed. Neck MRA: Axial and sagittal TruFISP through the neck. Coronal dynamic MR angiogram during administration of contrast in the arterial and venous phases, with 3-dimenstional aievdqg-wqnhmyokh-hfxxgmfnvo (MIP) reformats constructed from subtraction images. COMPARISON: [facility], CT, CT HEAD/BRAIN WO CON, 01/23/2020, 12:45. FINDINGS: Image quality: Excellent. BRAIN: CSF spaces: Ventricles are normal in size and shape. Basal cisterns are patent. No extra-axial fluid collections. Brain: No intracranial bleeds or mass effects. Mild diffuse cerebral volume loss is present. There is a mild degree of patchy high FLAIR signal within the periventricular and subcortical white matter. Gilmore-white matter interface is normal. Diffusion weighted images show no acute ischemic insults. Brainstem appears normal. Normal intravascular flow voids are present. No abnormal intracranial enhancement. Skull and face: Calvarial marrow signal is normal. Orbits appear normal. Sinuses: Sinuses and mastoids are clear. BRAIN MR ANGIOGRAM: Anterior circulation: Intracranial internal carotid arteries are normal in size and enhancement. The flow within the paired anterior cerebral arteries is normal and symmetric. The flow within the middle cerebral arteries is normal and symmetric. The anterior communicating artery is seen. No stenoses, occlusions, or aneurysms. Posterior circulation: The visualized portions of the vertebral arteries demonstrate normal caliber, and join to form a normal appearing basilar artery. The flow within the posterior cerebral arteries is normal and symmetric. No stenoses, occlusions, or aneurysms. NECK MR ANGIOGRAM: Carotids: Great vessels demonstrate a conventional anatomy as they arise from the aortic arch. The origins of the common carotid arteries appear patent. The calibers and courses of both common carotid arteries are normal. The bifurcation regions appear normal bilaterally. The internal carotid arteries demonstrate normal course and caliber. Posterior circulation: The right vertebral artery origin is patent. The left vertebral artery demonstrates a moderate to high-grade origin stenosis. More superior portions of both vertebral arteries demonstrate normal course and caliber, and join to form a normal appearing basilar artery. Miscellaneous: Subclavian arteries appear patent. Pre-contrast images through the neck show no soft tissue abnormalities. IMPRESSION: BRAIN MRI: 1. Mild volume loss and small vessel ischemic disease. 2. No acute process. No recent infarct. BRAIN MR ANGIOGRAM: 1. Negative cerebral MR angiography. NECK MR ANGIOGRAM: 1. No internal carotid artery stenosis bilaterally. 2. Patent right vertebral artery. 3. High-grade left vertebral artery origin stenosis. Dictated by: Ilsa Durbin M.D. on 01/24/2020 at 10:30 Approved by: Ilsa Durbin M.D. on 01/24/2020 at 10:33
--- NOTE | 2020-01-24 07:38 | P.PN_ITS ---
Exam Vital Signs (past 8 hours): - 01/23/20 23:51 01/24/20 00:00 01/24/20 05:45 Temperature 98.0 F Pulse Rate 59 L Respiratory Rate 16 Blood Pressure 115/59 L Pulse Oximetry 97 97 97 01/24/20 06:00 Temperature 98.0 F Pulse Rate 60 Respiratory Rate 16 Blood Pressure 152/79 H Pulse Oximetry 97 Oxygen Delivery Method Room Air Oxygen Flow Rate 0 Objective Labs Result Diagrams: 01/23/20 12:49 01/24/20 05:30 Labs: Laboratory Results - last 24 hr 01/23/20 01/23/20 01/23/20 12:49 12:49 12:49 WBC 4.1 L RBC 4.47 Hgb 14.6 Hct 43.1 MCV 96.3 MCH 32.6 MCHC 33.9 RDW 12.9 Plt Count 148 L Neut % (Auto) 56.1 Lymph % (Auto) 29.7 Dougherty % (Auto) 9.9 Eos % (Auto) 4.0 Baso % (Auto) 0.3 Neut # (Auto) 2300 Lymph # (Auto) 1200 Dougherty # (Auto) 400 Eos # (Auto) 200 Baso # (Auto) 0 PT INR APTT Sodium Potassium Chloride Carbon Dioxide BUN Creatinine Estimated GFR BUN/Creatinine Ratio Glucose Lactate Calcium Magnesium Total Bilirubin AST ALT Alkaline Phosphatase Total Creatine Kinase 137 H CK-MB (CK-2) 1.64 CK-MB (CK-2) Rel Index 1.2 L Troponin I < 0.012 NT-Pro-B Natriuret Pep 128 H Total Protein Albumin Globulin Albumin/Globulin Ratio Procalcitonin < 0.05 TSH Prolactin Salicylates U Opiates 300ng/mL cut Ur Oxycodone Screen Urine Methadone Screen Acetaminophen Ur Barbiturates Screen U Tricyclic Antidepress Ur Phencyclidine Scrn Ur Amphetamines Screen U Methamphetamines Scrn Ur MDMA Scrn (Ecstasy) U Benzodiazepines Scrn Urine Cocaine Screen U Marijuana (THC) Screen Ethyl Alcohol COVID-19 PCR 01/23/20 01/23/20 01/23/20 12:49 12:49 12:49 WBC RBC Hgb Hct MCV MCH MCHC RDW Plt Count Neut % (Auto) Lymph % (Auto) Dougherty % (Auto) Eos % (Auto) Baso % (Auto) Neut # (Auto) Lymph # (Auto) Dougherty # (Auto) Eos # (Auto) Baso # (Auto) PT 10.6 INR 0.9 APTT 31 Sodium 133 L Potassium 3.1 L Chloride 98 Carbon Dioxide 24 BUN 19 H Creatinine 0.68 Estimated GFR > 60.0 BUN/Creatinine Ratio 27.9 H Glucose 130 H Lactate 3.9 H Calcium 10.2 Magnesium Total Bilirubin 0.9 AST 99 H ALT 40 H Alkaline Phosphatase 72 Total Creatine Kinase CK-MB (CK-2) CK-MB (CK-2) Rel Index Troponin I NT-Pro-B Natriuret Pep Total Protein 8.5 H Albumin 4.9 Globulin 3.6 Albumin/Globulin Ratio 1.4 Procalcitonin TSH Prolactin 41.2 H Salicylates 1.1 U Opiates 300ng/mL cut Ur Oxycodone Screen Urine Methadone Screen Acetaminophen < 10 L Ur Barbiturates Screen U Tricyclic Antidepress Ur Phencyclidine Scrn Ur Amphetamines Screen U Methamphetamines Scrn Ur MDMA Scrn (Ecstasy) U Benzodiazepines Scrn Urine Cocaine Screen U Marijuana (THC) Screen Ethyl Alcohol < 10 COVID-19 PCR 01/23/20 01/23/20 01/23/20 12:49 14:22 14:55 WBC RBC Hgb Hct MCV MCH MCHC RDW Plt Count Neut % (Auto) Lymph % (Auto) Dougherty % (Auto) Eos % (Auto) Baso % (Auto) Neut # (Auto) Lymph # (Auto) Dougherty # (Auto) Eos # (Auto) Baso # (Auto) PT INR APTT Sodium Potassium Chloride Carbon Dioxide BUN Creatinine Estimated GFR BUN/Creatinine Ratio Glucose Lactate Calcium Magnesium Total Bilirubin AST ALT Alkaline Phosphatase Total Creatine Kinase 128 CK-MB (CK-2) 1.75 CK-MB (CK-2) Rel Index 1.4 L Troponin I 0.056 H NT-Pro-B Natriuret Pep Total Protein Albumin Globulin Albumin/Globulin Ratio Procalcitonin TSH 2.79 Prolactin Salicylates U Opiates 300ng/mL cut Negative Ur Oxycodone Screen Negative Urine Methadone Screen Negative Acetaminophen Ur Barbiturates Screen Negative U Tricyclic Antidepress Negative Ur Phencyclidine Scrn Negative Ur Amphetamines Screen Negative U Methamphetamines Scrn Negative Ur MDMA Scrn (Ecstasy) Negative U Benzodiazepines Scrn Negative Urine Cocaine Screen Negative U Marijuana (THC) Screen Negative Ethyl Alcohol COVID-19 PCR 01/23/20 01/23/20 01/23/20 14:55 14:55 16:56 WBC RBC Hgb Hct MCV MCH MCHC RDW Plt Count Neut % (Auto) Lymph % (Auto) Dougherty % (Auto) Eos % (Auto) Baso % (Auto) Neut # (Auto) Lymph # (Auto) Dougherty # (Auto) Eos # (Auto) Baso # (Auto) PT INR APTT Sodium Potassium Chloride Carbon Dioxide BUN Creatinine Estimated GFR BUN/Creatinine Ratio Glucose Lactate 1.4 Calcium Magnesium 1.9 Total Bilirubin AST ALT Alkaline Phosphatase Total Creatine Kinase CK-MB (CK-2) CK-MB (CK-2) Rel Index Troponin I NT-Pro-B Natriuret Pep Total Protein Albumin Globulin Albumin/Globulin Ratio Procalcitonin TSH Prolactin Salicylates U Opiates 300ng/mL cut Ur Oxycodone Screen Urine Methadone Screen Acetaminophen Ur Barbiturates Screen U Tricyclic Antidepress Ur Phencyclidine Scrn Ur Amphetamines Screen U Methamphetamines Scrn Ur MDMA Scrn (Ecstasy) U Benzodiazepines Scrn Urine Cocaine Screen U Marijuana (THC) Screen Ethyl Alcohol COVID-19 PCR Negative 01/23/20 01/24/20 01/24/20 21:40 05:30 05:30 WBC RBC Hgb Hct MCV MCH MCHC RDW Plt Count Neut % (Auto) Lymph % (Auto) Dougherty % (Auto) Eos % (Auto) Baso % (Auto) Neut # (Auto) Lymph # (Auto) Dougherty # (Auto) Eos # (Auto) Baso # (Auto) PT INR APTT Sodium 140 Potassium 4.7 D Chloride 110 H Carbon Dioxide 27 BUN 14 Creatinine 0.68 Estimated GFR > 60.0 BUN/Creatinine Ratio 20.6 Glucose 118 H Lactate Calcium 9.2 Magnesium Total Bilirubin AST ALT Alkaline Phosphatase Total Creatine Kinase 122 104 CK-MB (CK-2) 2.00 1.66 CK-MB (CK-2) Rel Index 1.6 1.6 Troponin I 0.184 H* 0.112 H NT-Pro-B Natriuret Pep Total Protein Albumin Globulin Albumin/Globulin Ratio Procalcitonin TSH Prolactin Salicylates U Opiates 300ng/mL cut Ur Oxycodone Screen Urine Methadone Screen Acetaminophen Ur Barbiturates Screen U Tricyclic Antidepress Ur Phencyclidine Scrn Ur Amphetamines Screen U Methamphetamines Scrn Ur MDMA Scrn (Ecstasy) U Benzodiazepines Scrn Urine Cocaine Screen U Marijuana (THC) Screen Ethyl Alcohol COVID-19 PCR
[2020-01-24 07:55] LABS: Cholesterol 149 mg/dL (140-199); HDL Cholesterol 56 mg/dL (40-60); LDL Cholesterol Calculated 78 mg/dL (<100); Triglycerides 74 mg/dL (35-150)
[2020-01-24 07:57] LABS: Hemoglobin A1C% w Est Avg Glu 5.6 % (4.0-6.0)
[2020-01-24 08:00] VITALS: BP 185/86; PULSE 65; RESP 16; TEMP 36.6; O2SAT 99
[2020-01-24 08:07] VITALS: BP 144/96; BP 151/90; BP 155/74; PULSE 64; PULSE 68; PULSE 69
[2020-01-24 09:32] VITALS: BP 185/86; PULSE 65
[2020-01-24] MEDS: METOPROLOL ER 25 MG TABLET PO (09:32)
[2020-01-24] MEDS: ENOXAPARIN 40 MG/0.4 ML SYRINGE SUBCUT (09:33)
[2020-01-24] MEDS: SODIUM CHLORIDE 0.9% 1,000 ML 100 ML IV (09:33)
[2020-01-24] MEDS: POTASSIUM CHLORIDE 20 MEQ TAB PO (09:33)
[2020-01-24] MEDS: ASPIRIN EC 81 MG TABLET PO (09:33)
--- NOTE | 2020-01-24 10:24 | PC.NURSE ---
Addendum entered by Orestes Olguin R.N. 01/24/20 14:24: Plans changed. See Dr. Marie orders. Initial bolus of heparin held per Dr. Spencer. Heparin gtt begun as ordered and per protocal. Pt transfered to [facility] per DR. Marie orders. Pt advised and spoke with and Dr. Spencer. ambulance here for pick uop. Report given, Pt now in the care of crew. Original Note: Pt alert and oriented, offers no overt c/o pain. IV patent. Fluids changed to NS @ 100cc/hr. Pt asking appropriate questions. Vital signs as noted and reported to Dr. Spencer. Plan for MRI and Stress test today. Pt aware of plan and is presently NPO pending procedure. Pt has notified of plan.
[2020-01-24] MEDS: HEPARIN DRIP 25,000 UNIT/500 ML IV.SOLN 15.888 UNIT IV (12:30)
[2020-01-24] MEDS: CLOPIDOGREL 75 MG TABLET 300 MG PO (12:36)
--- NOTE | 2020-01-24 12:45 | P.DS_ITS ---
History of Present Illness History of Present Illness Date Patient Seen: 01/23/20 Chief complaint: Shakey, Anxiety Narrative: Written by Dr. Harris: The patient is a 74-year-old female with a history of hypertension, hyperlipidemia, who was in her usual state of health until earlier this evening. The patient was doing Andi felt a little ?funny afterwards had a glass of milk when up stairs and took her medications. Following taking her hydrochlorothiazide and potassium she felt ?shaky ?. She told her she does not feel right. Her called 911 and they evaluate her and brought her to the hospital for further evaluation. The patient states she does not recall speaking to her and does not recall the medical management trainer arriving. She has had 2 other episodes where this is happen. Two years ago she had an episode where she was lightheaded and shaky brought into the hospital to be evaluated for chest pain ruled out and discharged home. 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 She describes that in 2/3 of the events each time she had exercised following exercise felt somewhat ?shaky? and then did not recall what happened subsequently. The patient uses weights when she is doing Andi. She reports some left-sided chest pain that lasted about 5 minutes. This did not radiate. There was no associated shortness of breath. There was no nausea. She was diaphoretic after working out but not associated with the event. In addition the patient denies any blurred vision, double vision, facial droop, slurred sp eech, weakness of her upper or lower extremities. The patient was evaluated in the emergency room. She had a head CT which was negative. Her EKG was unremarkable. A repeat troponin was mildly elevated at 0.056. The patient is event admitted to the hospital for further evaluation. Discharge Providers Provider Date of admission: 01/23/20 16:16 Discharge Date: 01/24/20 Primary care physician: Elie Alexandre MD Discharge provider: Shana Spencer DO Summary Hospital Course Discharge Diagnosis: 1. Acute NSTEMI, present on admission. Active. 2. Acute episode of confusion and shakiness, present on admission. Resolved. 3. Hypertension, chronic and likely uncontrolled, present on admission. Active. 4. Hyperlipidemia, present on admission. Presumed stable. 5. Hypokalemia, chronic, present on admission. Stable. 6. Hyponatremia, likely chronic, present on admission. Stable. 7. AAA, chronic, present on admission. Stable. Hospital Course: Addie Clark is a 74-year-old female with a past medical history significant for hypertension, hyperlipidemia, AAA, and transient global amnesia who pr esented to the emergency department after having an episode of confusion, shakiness, and not feeling well after vigorous exercise. 1. Acute NSTEMI, present on admission. Active. -Patient has intermittent episodes of substernal left-sided chest pain radiating to axilla several times a week with most recent episode the night before admission. Patient also has episodes of tingling in bilateral arms, shortness of breath and diaphoresis (with exercise) that are not timed with chest pain. -Cardiac risk factors include: Hypertension, hyperlipidemia, family history of first-degree relative (brother) with significant cardiac disease including CABG and is now . -Initial troponin negative at 0.012. Repeat troponin elevated at 0.056 which peaked at 0.184 and now is down to 0.112. -EKG demonstrated normal sinus rhythm with inverted T-waves in leads V1 through V5 unchanged from previous EKG and without acute ischemic changes such as ST elevation or depression. -Echocardiogram demonstrated normal left ventricular thickness, size, wall motion, and systolic function with EF 60-65%, normal RV size and function, no significant valvular abnormalities, no significant valvular abnormalities, ascending aorta is moderately enlarged at 4.5cm. -Continued aspirin 81 mg daily and atorvastatin 20 mg daily. -Discussed case with on-call Cardiology, Dr. Forbes, who recommended cancelling cardiac stress test, following NSTEMI guidelines and transfering to higher level of care for cardiac catheterization, loading with Plavix 300 mg x 1 and starting heparin gtt all of which were pursued. Patient is being transferred for left heart catheterization. 2. Acute episode of confusion and shakiness, present on admission. Resolved. -Patient presented with episode of tremulousness, confusion (did not know the date, time or year upon arrival to the ED which quickly resolved) and not feeling right after vigorous exercise. 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 -Initial NIH score 1 for disorientation. NIH score 0. -CT brain without contrast did not demonstrate any acute intracranial abnormalities. -MR stroke protocol did not demonstrate any acute intracranial process including infarct or hemodynamically significant stenosis of cerebral arteries. Mild volume loss and small vessel ischemic disease present. No internal carotid artery stenosis bilaterally, patent right vertebral artery and high-grade left vertebral artery origin stenosis. -Continued to monitor closely on telemetry. Patient was in sinus rhythm/sinus bradycardia (lowest heart rate 53 while sleeping) without any other significant ectopy. -Allowed for permissive hypertension times 24 hours. Restarted metoprolol succinate 25 mg daily. Held hydrochlorothiazide 50 mg daily due to possible orthostasis, dehydration and electrolyte derangement. 3. Hypertension, chronic and likely uncontrolled, present on admission. Active. -Patient recently had her hydrochlorothiazide doubled by a cardiology PA due persistently elevated blood pressure. -Continued metoprolol succinate 25 mg daily. Discontinued hydrochlorothiazide 50 mg daily due to possibility of orthostasis, dehydration, hyponatremia and hypokalemia. 4. Hyperlipidemia, present on admission. Presumed stable. -Fasting lipid panel demonstrated excellent lipid control with: Total cholesterol 149, triglycerides 74, LDL 78, and HDL 56. -Continued atorvastatin 20 mg daily. 5. Hypokalemia, chronic, present on admission. Stable. -Initial potassium level 3.1. Received potassium chloride 40 mEq x2. Continued home potassium chloride 20 mEq daily. Potassium level now normal at 4.7. -Continued to monitor potassium replete as necessary. 6. Hyponatremia, likely chronic, present on admission. Stable. -Likely secondary to thiazide diuretic. -Initial sodium level 133. Continued IV fluids until adequately hydrated then di scontinued. Sodium level now normal at 140. -Discontinued hydrochlorothiazide 50 mg daily. -Continued monitor sodium level daily. 7. AAA, chronic, present on admission. Stable. -Patient is monitored as an outpatient at [facility]. -Patient will need tighter blood pressure control and likely other antihypertensives added to medication regimen following heart catheterization. Exam Vital Signs (past 8 hours): - 01/24/20 05:45 01/24/20 06:00 01/24/20 08:00 Temperature 98.0 F 97.8 F Pulse Rate 60 65 Pulse Rate [Orthostatic Lying] Pulse Rate [Orthostatic Sitting] Pulse Rate [Orthostatic Standing] Respiratory Rate 16 16 Blood Pressure 152/79 H 185/86 H Blood Pressure [Orthostatic Lying] Blood Pressure [Orthostatic Sitting] Blood Pressure [Orthostatic Standing] Pulse Oximetry 97 97 99 01/24/20 08:07 01/24/20 09:32 Temperature Pulse Rate 65 Pulse Rate [Orthostatic Lying] 64 Pulse Rate [Orthostatic Sitting] 69 Pulse Rate [Orthostatic Standing] 68 Respiratory Rate Blood Pressure 185/86 H Blood Pressure [Orthostatic Lying] 155/74 H Blood Pressure [Orthostatic Sitting] 151/90 H Blood Pressure [Orthostatic Standing] 144/96 H Pulse Oximetry Oxygen Delivery Method Room Air Oxygen Flow Rate 0 Narrative Exam Narrative: General: Older female lying in bed and in no acute distress, well-developed, well-nourished, appropriately interactive. HEENT: Normocephalic, atraumatic. External ears without defect. Pupils equal, round, and reactive to light . Anicteric sclerae, moist conjunctivae, and no lid lag. Oropharynx free of erythema and cobble stoning with moist mucosa. Neck: Supple with full range of motion. No jugular venous distension. No bruits. No lymphadenopathy or thyromegaly. Cardiovascular: Regular rate and rhythm without murmurs, rubs, or gallops appreciated. No reproducible chest pain. Pulmonary: Clear to auscultation bilaterally without crackles, wheezes, or rhonchi. Normal respiratory effort with no use of accessory muscles. Abdomen: Soft, bowel sounds present, nontender, nondistended. No hepatosplenomegaly or masses appreciated. Extremities: No clubbing, cyanosis, or edema. Skin: Normal temperature, turgor, and texture; no rash, ulcers, or subcutaneous nodules appreciated. Neurological: Cranial nerves grossly intact. Psychiatric: Normal mood and affect. Alert and oriented to person, place, and time. Objective Labs Result Diagrams: 01/23/20 12:49 01/24/20 05:30 Labs: Laboratory Results - last 24 hr 01/23/20 01/23/20 01/23/20 12:49 12:49 12:49 WBC 4.1 L RBC 4.47 Hgb 14.6 Hct 43.1 MCV 96.3 MCH 32.6 MCHC 33.9 RDW 12.9 Plt Count 148 L Neut % (Auto) 56.1 Lymph % (Auto) 29.7 Josephine % (Auto) 9.9 Eos % (Auto) 4.0 Baso % (Auto) 0.3 Neut # (Auto) 2300 Lymph # (Auto) 1200 Josephine # (Auto) 400 Eos # (Auto) 200 Baso # (Auto) 0 PT INR APTT Sodium Potassium Chloride Carbon Dioxide BUN Creatinine Estimated GFR BUN/Creatinine Ratio Glucose Hemoglobin A1c Lactate Calcium Magnesium Total Bilirubin AST ALT Alkaline Phosphatase Total Creatine Kinase 137 H CK-MB (CK-2) 1.64 CK-MB (CK-2) Rel Index 1.2 L Troponin I < 0.012 NT-Pro-B Natriuret Pep 128 H Total Protein Albumin Globulin Albumin/Globulin Ratio Triglycerides Cholesterol LDL Cholesterol, Calc HDL Cholesterol Procalcitonin < 0.05 TSH Prolactin Salicylates U Opiates 300ng/mL cut Ur Oxycodone Screen Urine Methadone Screen Acetaminophen Ur Barbiturates Screen U Tricyclic Antidepress Ur Phencyclidine Scrn Ur Amphetamines Screen U Methamphetamines Scrn Ur MDMA Scrn (Ecstasy) U Benzodiazepines Scrn Urine Cocaine Screen U Marijuana (THC) Screen Ethyl Alcohol COVID-19 PCR 01/23/20 01/23/20 01/23/20 12:49 12:49 12:49 WBC RBC Hgb Hct MCV MCH MCHC RDW Plt Count Neut % (Auto) Lymph % (Auto) Josephine % (Auto) Eos % (Auto) Baso % (Auto) Neut # (Auto) Lymph # (Auto) Josephine # (Auto) Eos # (Auto) Baso # (Auto) PT 10.6 INR 0.9 APTT 31 Sodium 133 L Potassium 3.1 L Chloride 98 Carbon Dioxide 24 BUN 19 H Creatinine 0.68 Estimated GFR > 60.0 BUN/Creatinine Ratio 27.9 H Glucose 130 H Hemoglobin A1c Lactate 3.9 H Calcium 10.2 Magnesium Total Bilirubin 0.9 AST 99 H ALT 40 H Alkaline Phosphatase 72 Total Creatine Kinase CK-MB (CK-2) CK-MB (CK-2) Rel Index Troponin I NT-Pro-B Natriuret Pep Total Protein 8.5 H Albumin 4.9 Globulin 3.6 Albumin/Globulin Ratio 1.4 Triglycerides Cholesterol LDL Cholesterol, Calc HDL Cholesterol Procalcitonin TSH Prolactin 41.2 H Salicylates 1.1 U Opiates 300ng/mL cut Ur Oxycodone Screen Urine Methadone Screen Acetaminophen < 10 L Ur Barbiturates Screen U Tricyclic Antidepress Ur Phencyclidine Scrn Ur Amphetamines Screen U Methamphetamines Scrn Ur MDMA Scrn (Ecstasy) U Benzodiazepines Scrn Urine Cocaine Screen U Marijuana (THC) Screen Ethyl Alcohol < 10 COVID-19 [facility] 01/23/20 01/23/20 01/23/20 12:49 14:22 14:55 WBC RBC Hgb Hct MCV MCH MCHC RDW Plt Count Neut % (Auto) Lymph % (Auto) Josephine % (Auto) Eos % (Auto) Baso % (Auto) Neut # (Auto) Lymph # (Auto) Josephine # (Auto) Eos # (Auto) Baso # (Auto) PT INR APTT Sodium Potassium Chloride Carbon Dioxide BUN Creatinine Estimated GFR BUN/Creatinine Ratio Glucose Hemoglobin A1c Lactate Calcium Magnesium Total Bilirubin AST ALT Alkaline Phosphatase Total Creatine Kinase 128 CK-MB (CK-2) 1.75 CK-MB (CK-2) Rel Index 1.4 L Troponin I 0.056 H NT-Pro-B Natriuret Pep Total Protein Albumin Globulin Albumin/Globulin Ratio Triglycerides Cholesterol LDL Cholesterol, Calc HDL Cholesterol Procalcitonin TSH 2.79 Prolactin Salicylates U Opiates 300ng/mL cut Negative Ur Oxycodone Screen Negative Urine Methadone Screen Negative Acetaminophen Ur Barbiturates Screen Negative U Tricyclic Antidepress Negative Ur Phencyclidine Scrn Negative Ur Amphetamines Screen Negative U Methamphetamines Scrn Negative Ur MDMA Scrn (Ecstasy) Negative U Benzodiazepines Scrn Negative Urine Cocaine Screen Negative U Marijuana (THC) Screen Negative Ethyl Alcohol COVID-19 [facility] 01/23/20 01/23/20 01/23/20 14:55 14:55 16:56 WBC RBC Hgb Hct MCV MCH MCHC RDW Plt Count Neut % (Auto) Lymph % (Auto) Josephine % (Auto) Eos % (Auto) Baso % (Auto) Neut # (Auto) Lymph # (Auto) Josephine # (Auto) Eos # (Auto) Baso # (Auto) PT INR APTT Sodium Potassium Chloride Carbon Dioxide BUN Creatinine Estimated GFR BUN/Creatinine Ratio Glucose Hemoglobin A1c Lactate 1.4 Calcium Magnesium 1.9 Total Bilirubin AST ALT Alkaline Phosphatase Total Creatine Kinase CK-MB (CK-2) CK-MB (CK-2) Rel Index Troponin I NT-Pro-B Natriuret Pep Total Protein Albumin Globulin Albumin/Globulin Ratio Triglycerides Cholesterol LDL Cholesterol, Calc HDL Cholesterol Procalcitonin TSH Prolactin Salicylates U Opiates 300ng/mL cut Ur Oxycodone Screen Urine Methadone Screen Acetaminophen Ur Barbiturates Screen U Tricyclic Antidepress Ur Phencyclidine Scrn Ur Amphetamines Screen U Methamphetamines Scrn Ur MDMA Scrn (Ecstasy) U Benzodiazepines Scrn Urine Cocaine Screen U Marijuana (THC) Screen Ethyl Alcohol COVID-19 PCR Negative 01/23/20 01/24/20 01/24/20 21:40 05:30 05:30 WBC RBC Hgb Hct MCV MCH MCHC RDW Plt Count Neut % (Auto) Lymph % (Auto) Josephine % (Auto) Eos % (Auto) Baso % (Auto) Neut # (Auto) Lymph # (Auto) Josephine # (Auto) Eos # (Auto) Baso # (Auto) PT INR APTT Sodium 140 Potassium 4.7 D Chloride 110 H Carbon Dioxide 27 BUN 14 Creatinine 0.68 Estimated GFR > 60.0 BUN/Creatinine Ratio 20.6 Glucose 118 H Hemoglobin A1c Lactate Calcium 9.2 Magnesium Total Bilirubin AST ALT Alkaline Phosphatase Total Creatine Kinase 122 104 CK-MB (CK-2) 2.00 1.66 CK-MB (CK-2) Rel Index 1.6 1.6 Troponin I 0.184 H* 0.112 H NT-Pro-B Natriuret Pep Total Protein Albumin Globulin Albumin/Globulin Ratio Triglycerides Cholesterol LDL Cholesterol, Calc HDL Cholesterol Procalcitonin TSH Prolactin Salicylates U Opiates 300ng/mL cut Ur Oxycodone Screen Urine Methadone Screen Acetaminophen Ur Barbiturates Screen U Tricyclic Antidepress Ur Phencyclidine Scrn Ur Amphetamines Screen U Methamphetamines Scrn Ur MDMA Scrn (Ecstasy) U Benzodiazepines Scrn Urine Cocaine Screen U Marijuana (THC) Screen Ethyl Alcohol COVID-19 PCR 01/24/20 01/24/20 05:30 05:30 WBC RBC Hgb Hct MCV MCH MCHC RDW Plt Count Neut % (Auto) Lymph % (Auto) Josephine % (Auto) Eos % (Auto) Baso % (Auto) Neut # (Auto) Lymph # (Auto) Josephine # (Auto) Eos # (Auto) Baso # (Auto) PT INR APTT Sodium Potassium Chloride Carbon Dioxide BUN Creatinine Estimated GFR BUN/Creatinine Ratio Glucose Hemoglobin A1c 5.6 Lactate Calcium Magnesium Total Bilirubin AST ALT Alkaline Phosphatase Total Creatine Kinase CK-MB (CK-2) CK-MB (CK-2) Rel Index Troponin I NT-Pro-B Natriuret Pep Total Protein Albumin Globulin Albumin/Globulin Ratio Triglycerides 74 Cholesterol 149 LDL Cholesterol, Calc 78 HDL Cholesterol 56 Procalcitonin TSH Prolactin Salicylates U Opiates 300ng/mL cut Ur Oxycodone Screen Urine Methadone Screen Acetaminophen Ur Barbiturates Screen U Tricyclic Antidepress Ur Phencyclidine Scrn Ur Amphetamines Screen U Methamphetamines Scrn Ur MDMA Scrn (Ecstasy) U Benzodiazepines Scrn Urine Cocaine Screen U Marijuana (THC) Screen Ethyl Alcohol COVID-19 PCR Discharge Plan Discharge Plan Disposition: Xfer Acute Care Hospital Discharge orders & Medications Follow up/Referrals: Elie Alexandre MD [Primary Care Provider] - Discharge Data Primary Care Provider: Elie Alexandre Attending Provider: Shana Spencer Admit Date/Time: 01/23/20 16:16
[2020-01-24 12:53] LABS: Hematocrit 40.9 % (36-46); Hemoglobin 13.6 g/dL (12.0-16.0); Platelet Count 146 X10^3/uL (150-400)
[2020-01-24 13:01] LABS: Prothrombin Time 11.5 SECONDS (10.1-12.7)
[2020-01-24 13:04] LABS: PTT Partial Thromboplastin Tim 39 SECONDS (26.4-36.2)
--- NOTE | 2020-01-24 13:41 | CM.DANOTE ---
DCP Assessment: EMR reviewed: Patient is a 74 yr old female who was admitted for NSTEMI- patient PCP is Elie Kimble. During AM rounds patient was discussed and determined that patient needs to be transfered to [facility] for Cardiac Cath. Dr. Spencer talked with patient and Charge Nurse set up transport for the patient. Patient currently lives in a single level home with her Jesus. Patient is Independent at base line with all ADLS I [place] and self pay Plan: Transfer to [facility] for cardiac Cath. Candy Mcqueen RN Discharge Planning/Care Management CM Discharge Assessment Start: 01/24/20 13:40 Freq: Status: Active Protocol: Document 01/24/20 13:40 HS (Rec: 01/24/20 13:41 HS [id number]) Discharge Planning Assessment Assigned Display Fabricator Candy Mcquene RN DPOA/Assigned Designee Name Jesus Stafford () Contact Information [phone] Advance Directives? Yes Advance Directives on File No History Provided By Patient,Family Member Has Patient been admitted in last 30 No days? Prior Living Arrangements House Household Members spouse Type of transporation used prior to Drives own vehicle admit Independent with ADL's Yes Is patient alert and oriented? Yes Comment Likely home with spouse at d/c and currently 2 adult dtrs in town helping them with their move into a new house. Barriers to Discharge No Discharge Plan Home Transportation Arrangement Family can provide transport Referrals Initiated None needed Whiteboard Updated in Patient Room with Yes name and ext. # of Display Fabricator Review Status In Process Next Review Type Continued Stay Review
--- NOTE | 2020-02-03 17:09 | PC.NURSE ---
Late Entry: Normal saline infusion initiated 01/23 at 09:33, and Heparin drip initiated 01/23 at 12:30 were infusing at the time of transfer to [facility], 01/23 at 13:57.
== END 2020-01-24 13:57 | disposition short-term general hospital (02) ==
LOC: ED 12:54 → AC 16:16
PROVIDERS: Internal Medicine; Admitting Provider Internal Medicine; Emergency Provider Nurse Practitioner Family; PCP Family Medicine; Referring Provider Nurse Practitioner Family; Visit Provider Internal Medicine
DX: R41.0 Disorientation, unspecified (principal); I21.4 Non-ST elevation (NSTEMI) myocardial infarction; I10 Essential (primary) hypertension; E78.5 Hyperlipidemia, unspecified; E87.6 Hypokalemia; E87.1 Hypo-osmolality and hyponatremia; I71.4 Abdominal aortic aneurysm, without rupture; Z11.59 Encounter for screening for other viral diseases
CPT/HCPCS: 36415; 70450; 70548; 70553; 71045; 80048; 80053; 80061; 80305; 80320; 80329; 82550; 82553; 82962; 83036; 83605; 83735; 83880; 84145; 84146; 84443; 84484; 85014; 85018; 85025; 85049; 85610; 85730; 87635; 93005; 93306; 96361; 96365; 96372; 99285; G0378; G0480; J1644; J1650

== ENCOUNTER → 2024-02-09 12:52 | Outpatient (CLI) | payer OTHER, SELFPAY ==
[2020-01-23 18:08] VITALS: BMI 25.0
--- NOTE | 2024-02-09 12:53 | DI.RAD.S_ITS ---
PROCEDURE: XR DEXA AXIAL SKELETON INDICATIONS: SCREENING FOR OSTEOPOROSIS COMPARISON: None. FINDINGS: Lumbar Spine (L4 excluded due to increased density): Bone mineral density 1.07 g/cm2, T score 0.5, normal. Left Hip: Bone mineral density 0.928 g/cm2, T score -0.1, normal. Left Femoral Neck: Bone mineral density 0.783 g/cm2, T score -0.6, normal. Right Hip: Bone mineral density 0.896 g/cm2, T score -0.4, normal. Right Femoral Neck: Bone mineral density 0.793 g/cm2, T score -0.5, normal. FRAX not reported due to normal bone mineral density. (T score greater or equal to -1.0 to: NORMAL) (T score from -1.1 to -2.4: OSTEOPENIA) (T score less than or equal to -2.5: OSTEOPOROSIS) IMPRESSION: Normal bone mineral density. Follow-up guidelines as follows: Osteoporosis: Consider a repeat DEXA and Vertebral Fracture Assessment (VFA) exam in 2 years or sooner if medically necessary, to reassess this patient's status. Osteopenia: Consider a repeat DEXA in 2-3 years to reassess this patient's status, or if there is a new clinical indication. Normal: Consider a repeat DEXA in 5 years or sooner, or if there is a new clinical indication. All treatment decisions require clinical judgment and consideration of individual patient factors, including patient preferences, comorbidities, previous drug use, risk factors not captured in the FRAX model (e.g., frailty, falls, vitamin D deficiency, increased bone turnover, interval significant decline in bone density ) and possible under- or over-estimation of fracture risk by FRAX. In addition, the NOF Guide recommends that FDA-approved medical therapies be considered in postmenopausal women and men age >= 50 years with a: * Hip or vertebral (clinical or morphometric) fracture * T-score of <=-2.5 at the spine or hip * Ten-year fracture probability by FRAX of >= 3% for hip fracture or >=20% for major osteoporotic fracture. People with diagnosed cases of osteoporosis or at high risk for fracture should have regular bone mineral density tests. For patients eligible for Medicare, routine testing is allowed once every 2 years. The testing frequency can be increased to one year for patients who have rapidly progressing disease, those who are receiving or discontinuing medical therapy to restore bone mass, or have additional risk factors. Dictated by: Sedrick Rebolledo M.D. on 02/09/2024 at 18:47 Approved by: Sedrick Rebolledo M.D. on 02/09/2024 at 18:49
== END ==
PROVIDERS: PCP Internal Medicine; Referring Provider Internal Medicine; Visit Provider Internal Medicine
DX: Z13.820 Encounter for screening for osteoporosis; Z78.0 Asymptomatic menopausal state
CPT/HCPCS: 77080